=== PATIENT | female | born 1985 | race Caucasian/White ===

== ENCOUNTER 2016-06-04 20:47 | Emergency (ER) | payer OTHER ==
[~2016-06-04] VITALS: Ht 157.5 cm; Wt 90.8 kg
[2016-06-04 20:48] VITALS: TEMP 36.7; Ht 157.5 cm; Wt 90.8 kg
[2016-06-04] MEDS ORDERED: ACETAMINOPHEN 500 MG TAB PO STA (21:09)
[2016-06-04] MEDS ORDERED: ALUMINUM/MAGNESIUM SUSP 30 ML UDC PO STA (21:09)
[2016-06-04 21:12] VITALS: O2SAT 98
[2016-06-04 21:17] LABS: MEAN CELL VOLUME 93.7 fL (80-100); MEAN CORPUSCULAR HEMOGLOBIN 34.2 pg (25-34); MEAN CORPUSCULAR HGB CONC 36.5 g/dl (32-36); MEAN PLATELET VOLUME 8.6 fL (7.4-10.4); PLATELET COUNT 348 K/uL (130-400); RED BLOOD COUNT 3.63 M/uL (4.2-5.4); WHITE BLOOD COUNT 15.99 K/uL (4.8-10.8)
--- NOTE | 2016-06-04 21:17 | EMERGENCY ROOM VISIT NOTE ---
History Report prepared by [place]: Ji Palacios Under the Supervision of: Dr. Juan David Pozo D.O. First contact with patient: 21:00 Chief Complaint: CHEST PAIN Stated Complaint: CHEST PAIN Nursing Triage Summary: patient states one hour ago she had sudden onset left sided chest pain that radiated into left arm. patient states intial stabbing chest pain has subsided now she just feels " tight". denies any cardiac hx. History of Present Illness The patient is a 31 year old female who presents to the Emergency Room with complaints of an episode of chest pain beginning about 1 hour ago. She notes the pain is sharp and stabbing and she is also experiencing a tightness in her chest especially when she breaths. She has some upper back pain upon breathing. The patient notes the pain radiates to her left arm and fingers, and also has tingling in her fingers. She denies any shortness of breath, cough, abdominal pain, or swelling of her legs. The patient takes antidepressants and gabapentin daily, and was recently put on antibiotics for a build up of good bacteria. The patient notes she is 5.5 months and that this is her first . She did not call her OB-BONDERIZER tonight. She admits to smoking, and denies any history of clots or recent travel. She has had nose and tonsil surgery in the past. The patient took Tylenol 3 hours ago. Source of History: patient Onset: about 1 hour ago Position: chest Quality: sharp, stabbing Timing: other (episode) Modifying Factors (Worsening): breathing Associated Symptoms: + back pain, No SOB, No abdominal pain, No cough Note: The patient denies swelling of her legs. Review of Systems See HPI for pertinent positives & negatives. A total of 10 systems reviewed and were otherwise negative. Past Medical & Surgical Medical Problems: (1) History of asthma Family History No pertinent family history stated. Social History Smoking Status: Current Every Day Smoker Occupation Status: employed Current/Historical Medications Scheduled Escitalopram (Lexapro), 10 MG PO DAILY Gabapentin (Neurontin), 300 MG PO TID Multivit/Min/Iron/Fol Ac/Pren ( Vitamin), 1 TAB PO DAILY Scheduled PRN Albuterol Hfa (Ventolin Hfa), 2 PUFFS INH Q6H PRN for SOB/Wheezing Physical Exam Vital Signs Date Time Temp Pulse Resp B/P Pulse Ox O2 Delivery O2 Flow Rate FiO2 06/04/16 23:57 84 20 124/70 98 06/04/16 23:18 94 20 128/79 98 Room Air 06/04/16 22:24 95 20 125/72 97 Room Air 06/04/16 21:12 98 Room Air 06/04/16 21:12 98 Room Air 06/04/16 21:05 113 06/04/16 21:00 97 Room Air 06/04/16 20:48 36.7 104 20 171/91 99 Room Air Physical Exam GENERAL: Patient is awake alert in no acute distress patient is resting comfortably and showing no signs of anxiety EYES: The conjunctivae are clear. The pupils are round and reactive. EARS, NOSE, MOUTH AND THROAT: The nose is without any evidence of any deformity. Mucous membranes are moist tongue is midline NECK: The neck is nontender and supple. RESPIRATORY: Normal respiratory effort is noted there is no evidence of wheezing rhonchi or rales CARDIOVASCULAR: Tachycardic but regular. No definite murmurs noted. GASTROINTESTINAL: Abdomen is in appearance. No uterine tenderness. Abdomen is tender to palpation. No guarding or rigidity. MUSCULOSKELETAL/EXTREMITIES: There is no evidence of gross deformity full range of motion is noted in the hips and shoulders SKIN: There is no obvious evidence of any rash. There are no petechiae, pallor or cyanosis noted. NEUROLOGIC: Patient is awake alert and oriented x3. Medical Decision & Procedures ER Provider Diagnostic Interpretation: CT the chest was obtained in the emergency department. The report was reviewed. Preliminary Findings Only See Final Report For Complete Findings CTA CHEST: No PE. No aortic dissection. Lungs are clear. Radiologist: Param Eubanks M.D. Study ready at 23:16 and initial results transmitted at 23:44 SINGLE VIEW CHEST FINDINGS: An AP, portable, upright chest radiograph is obtained. No prior studies are available for comparison at the time of dictation. The examination is degraded by portable technique and patient rotation. The cardiomediastinal silhouette is unremarkable. The lungs and pleural spaces are clear. No pneumothorax is seen. The bony thorax is grossly intact. IMPRESSION: No active disease in the chest. Electronically signed by: Damon Alvarado M.D. 06/04/2016 10:12 PM Dictated Date/Time: 06/04/2016 10:12 PM Laboratory Results 06/04/16 21:05 Red Blood Count 3.63, Mean Corpuscular Volume 93.7, Mean Corpuscular Hemoglobin 34.2, Mean Corpuscular Hemoglobin Concent 36.5, Mean Platelet Volume 8.6 06/04/16 21:05 Test 06/04/16 21:05 06/04/16 21:14 06/04/16 21:55 White Blood Count 15.99 K/uL (4.8-10.8) Red Blood Count 3.63 M/uL (4.2-5.4) Hemoglobin 12.4 g/dL (12.0-16.0) Hematocrit 34.0 % (37-47) Mean Corpuscular Volume 93.7 fL (80-100) Mean Corpuscular Hemoglobin 34.2 pg (25-34) Mean Corpuscular Hemoglobin Concent 36.5 g/dl (32-36) Platelet Count 348 K/uL (130-400) Mean Platelet Volume 8.6 fL (7.4-10.4) RDW Standard Deviation 41.8 fL (36.4-46.3) RDW Coefficient of Variation 12.3 % (11.5-14.5) Neutrophils % (Manual) 72.2 % Lymphocytes % (Manual) 22.6 % Monocytes % (Manual) 2.6 % Eosinophils % (Manual) 1.7 % Myelocytes % 0.9 % Neutrophils # (Manual) 11.54 K/uL (1.4-6.5) Total Absolute Neutrophils 11.54 K/uL (1.4-6.5) Lymphocytes # (Manual) 3.61 K/uL (1.2-3.4) Total Absolute Lymphocytes 3.61 K/uL (1.2-3.4) Monocytes # (Manual) 0.42 K/uL (0.11-0.59) Eosinophils # (Manual) 0.27 K/uL (0-0.5) Myelocytes # 0.14 K/uL (0-0) Red Blood Cell Morphology Unremarkable Prothrombin Time 9.8 SECONDS (9.0-12.0) Prothromb Time International Ratio 0.9 (0.9-1.1) Activated Partial Thromboplast Time 25.0 SECONDS (21.0-31.0) Partial Thromboplastin Ratio 1.0 Anion Gap 11.0 mmol/L (3-11) Est Creatinine Clear Calc Drug Dose 118.7 ml/min Estimated GFR () 129.3 Estimated GFR (Non- 111.6 BUN/Creatinine Ratio 11.9 (10-20) Calcium Level 9.3 mg/dl (8.5-10.1) Total Bilirubin 0.2 mg/dl (0.2-1) Aspartate Amino Transf (AST/SGOT) 22 U/L (15-37) Alanine Aminotransferase (ALT/SGPT) 26 U/L (12-78) Alkaline Phosphatase 59 U/L (45-117) Troponin I < 0.015 ng/ml (0-0.045) Total Protein 6.9 gm/dl (6.4-8.2) Albumin 3.0 gm/dl (3.4-5.0) Globulin 3.9 gm/dl (2.5-4.0) Albumin/Globulin Ratio 0.8 (0.9-2) Bedside D-Dimer > 450 ng/mlFEU (0-450) Urine Color YELLOW Urine Appearance CLEAR (CLEAR) Urine pH 6.5 (4.5-7.5) Urine Specific [place] 1.012 (1.000-1.030) Urine Protein NEG (NEG) Urine Glucose (UA) NEG (NEG) Urine Ketones NEG (NEG) Urine Occult Blood NEG (NEG) Urine Nitrite NEG (NEG) Urine Bilirubin NEG (NEG) Urine Urobilinogen NEG (NEG) Urine Leukocyte Esterase TRACE (NEG) Urine WBC (Auto) 1-5 /hpf (0-5) Urine RBC (Auto) 0-4 /hpf (0-4) Urine Hyaline Casts (Auto) 1-5 /lpf (0-5) Urine Epithelial Cells (Auto) 20-30 /lpf (0-5) Urine Bacteria (Auto) NEG (NEG) Laboratory results per my review. Medications Administered Medications (Trade) Dose Ordered Sig/Linda Route Start Time Stop Time Status Last Admin Dose Admin Acetaminophen (Tylenol Tab) 1,000 mg NOW STAT PO 06/04/16 21:09 06/04/16 21:10 DC 06/04/16 21:21 1,000 MG Al Hydroxide/Mg Hydroxide 30 ml 30 ml NOW STAT PO 06/04/16 21:09 4/16/17 21:11 DC 06/04/16 21:21 30 ML Sodium Chloride (Nss 1000ml) 1,000 ml @ 999 mls/hr Q1H1M STAT IV 06/04/16 22:15 06/04/16 23:15 DC 06/04/16 22:15 999 MLS/HR ECG Indication: chest pain Rate (beats per minute): 99 Rhythm: normal sinus Findings: no ectopy, other (No acute ST segment abnormality) Comparison ECG Date: no prior available ED Course 2103: The patient was evaluated in room C9. A complete history and physical examination were performed. 2108: Ordered Maalox Susp 30 ml PO, and Acetaminophen 1,000 mg PO. 2214: Ordered NSS 1,000 ml @ 999 mls/hr IV. 2354: Upon reevaluation, the patient is doing well. I discussed the results and treatment plan with the patient. She verbalized agreement of the treatment plan. The patient was discharged home. Medical Decision Differential diagnosis: Etiologies such as cardiac ischemia, aortic dissection, pulmonary embolism, pneumonia, pneumothorax, musculoskeletal, infections, pericarditis, myocarditis , esophageal rupture, gastrointestinal, as well as others were entertained. Nursing notes reviewed. The patient is a 31-year-old female who presented to the emergency department for an evaluation of left-sided chest pain. The pain was not reproducible. Her EKG did not appear to be consistent with an acute ischemic cause for her pain. The patient's d-dimer is elevated but she is also . Because of the possibility venous from [place] disease CT the chest was obtained in the emergency department. The patient was treated with IV fluids and Tylenol emergency department. On subsequent reevaluation she was somewhat improved. I discussed the patient's laboratory and radiographic studies with her. She was encouraged to rest and avoid any strenuous activity. She was also encouraged to call her family doctor in the morning to schedule a follow-up appointment. She was also encouraged to return the emergency Department immediately if symptoms change worsen or the need arises. She did not appear to have any abdominal tenderness or signs of contractions while in the emergency department. Impression Primary Impression: Left sided chest pain Scribe Attestation The scribe's documentation has been prepared under my direction and personally reviewed by me in its entirety. I confirm that the note above accurately reflects all work, treatment, procedures, and medical decision making performed by me. Departure Information Dispostion Home / Self-Care Referrals Jose Nicole D.O. (PCP) Patient Instructions ED Chest Pain Atypical Unkn Cause, My [facility] Additional Instructions Call your family to schedule a follow-up appointment. Rest and avoid any strenuous activity. Drink plenty clear liquids. Consider starting an H2 toro such as Pepcid or Zantac. Try using Maalox or Mylanta as directed for symptomatically relief. Return to the emergency Department immediately if symptoms change worsen or the need arises.
[2016-06-04 21:27] LABS: INR 0.9 (0.9-1.1); PROTHROMBIN TIME (PATIENT) 9.8 SECONDS (9.0-12.0)
[2016-06-04 21:36] LABS: BLOOD UREA NITROGEN 9 mg/dl (7-18); BUN/CREATININE RATIO 11.9 (10-20); CARBON DIOXIDE 25 mmol/L (21-32); CHLORIDE 104 mmol/L (98-107); CREATININE 0.72 mg/dl (0.60-1.20); GLUCOSE 94 mg/dl (70-99); POTASSIUM 3.5 mmol/L (3.5-5.1); SODIUM 140 mmol/L (136-145)
[2016-06-04 21:39] LABS: COMPLETE YES; EOSINOPHIL % 1.7 %; LYMPH ABS # 3.61 K/uL (1.2-3.4); LYMPHOCYTE % 22.6 %; MYELOCYTE % 0.9 %; NEUTROPHILS % 72.2 %
[2016-06-04 21:41] LABS: ALB/GLOB RATIO 0.8 (0.9-2); ALKALINE PHOSPHATASE 59 U/L (45-117); ALT/SGPT 26 U/L (12-78); AST/SGOT 22 U/L (15-37)
[2016-06-04] MEDS ORDERED: GABA-113 PO (21:42)
[2016-06-04] MEDS ORDERED: ESCI10TA17 PO (21:42)
[2016-06-04] MEDS ORDERED: VNTHFA/IN INH (21:42)
[2016-06-04] MEDS ORDERED: PRENTAB26 PO (21:42)
[2016-06-04 21:50] LABS: CALCIUM 9.3 mg/dl (8.5-10.1)
[2016-06-04 22:11] LABS: URINE APPEARANCE CLEAR (CLEAR); URINE BILIRUBIN NEG (NEG); URINE COLOR YELLOW; URINE EPITHELIAL CELL AUTO 20-30 /lpf (0-5); URINE NITRITE NEG (NEG); URINE PH 6.5 (4.5-7.5); URINE SPECIFIC GRAVITY 1.012 (1.000-1.030); UROBILINOGEN NEG (NEG)
[2016-06-04 22:13] LABS: MANUAL MICROSCOPIC REQUIRED? NO; REVIEW REQ? NO
--- NOTE | 2016-06-04 22:14 | DIAGNOSTIC IMAGING REPORT ---
SINGLE VIEW CHEST CLINICAL HISTORY: Dyspnea. . FINDINGS: An AP, portable, upright chest radiograph is obtained. No prior studies are available for comparison at the time of dictation. The examination is degraded by portable technique and patient rotation. The cardiomediastinal silhouette is unremarkable. The lungs and pleural spaces are clear. No pneumothorax is seen. The bony thorax is grossly intact. IMPRESSION: No active disease in the chest. Electronically signed by: Damon Alvarado M.D. 06/04/2016 10:12 PM Dictated Date/Time: 06/04/2016 10:12 PM
[2016-06-04] MEDS ORDERED: SODIUM CHLORIDE 0.9% 1000ML 1,000 ML IV STA (22:15)
[2016-06-04] MEDS ORDERED: OPTIRAY 320 IV PRN (23:15)
[2016-06-04 23:57] VITALS: BP 124/70; PULSE 84; O2SAT 98
--- NOTE | 2016-06-05 07:28 | DIAGNOSTIC IMAGING REPORT ---
CHEST CTA for PULMONARY ARTERIES CT DOSE: 414.27 mGy.cm HISTORY: Left-sided chest pain. . TECHNIQUE: Multiaxial CT images of the chest were performed following the intravenous administration of contrast to evaluate the pulmonary arteries. Maximal intensity projection images were also obtained. COMPARISON STUDY: None. FINDINGS: There is a normal caliber thoracic aorta with no evidence for dissection. There is no evidence for pulmonary embolus. No pleural effusions. No pneumothorax. The liver and spleen are unremarkable. No mediastinal or hilar lymphadenopathy. The central airways are patent. No focal lung consolidations. A few tiny subpleural nodular densities within the left lung are of doubtful clinical significance. IMPRESSION: No evidence for pulmonary embolus. Electronically signed by: Nura Edgar M.D. 06/05/2016 7:26 AM Dictated Date/Time: 06/05/2016 7:22 AM
[2016-07-14] MEDS ORDERED: KFL250 PO (23:23)
[2016-09-29] MEDS ORDERED: OXYC-57 PO (13:03)
== END 2016-06-04 23:58 | disposition home or self-care (01) ==
LOC: C.EDB 20:47 → C.EDC 23:58
DX: R07.9 Chest pain, unspecified (principal); M54.6 Pain in thoracic spine; R20.2 Paresthesia of skin; O99.330 Smoking (tobacco) complicating pregnancy, unspecified trimester; Z3A.00 Weeks of gestation of pregnancy not specified; Z79.899 Other long term (current) drug therapy; J45.909 Unspecified asthma, uncomplicated; F17.200 Nicotine dependence, unspecified, uncomplicated

== ENCOUNTER 2016-07-12 08:26 | Emergency (ER) | payer OTHER ==
[~2016-07-12] VITALS: Ht 158.8 cm; Wt 97.3 kg
[~2016-07-12 08:26] MED LIST: ESCI10TA17 PO; GABA-113 PO; PRENTAB26 PO; VNTHFA/IN INH
[2016-07-12 08:28] VITALS: PULSE 121; TEMP 36.5; O2SAT 99; Ht 158.8 cm; Wt 97.3 kg
[2016-07-12] MEDS ORDERED: CLR10 PO (09:07)
[2016-07-12 09:54] LABS: URINE APPEARANCE CLEAR (CLEAR); URINE BILIRUBIN NEG (NEG); URINE COLOR YELLOW; URINE EPITHELIAL CELL AUTO >30 /lpf (0-5); URINE NITRITE NEG (NEG); URINE PH 8.5 (4.5-7.5); URINE SPECIFIC GRAVITY 1.013 (1.000-1.030); UROBILINOGEN NEG (NEG); ZZUR CULT IF INDIC CLEAN CATCH YES
[2016-07-12 09:55] LABS: MANUAL MICROSCOPIC REQUIRED? NO; REVIEW REQ? NO
--- NOTE | 2016-07-12 11:05 | EMERGENCY ROOM VISIT NOTE ---
History First contact with patient: 09:10 Chief Complaint: HEMATURIA Stated Complaint: BLOOD IN URINE-7 MONTHS -THROUGH ER 1ST Nursing Triage Summary: noticed hematuria, 7 months History of Present Illness The patient is a 31 year old female who presents to the Emergency Room with complaints of blood in her urine this morning. The patient is currently 7 months . She sees [facility] ADMINISTRATIVE SUPPORT ASSOCIATE. The patient states that she woke up and noticed that her urine was darker than normal this morning. She states that the bleeding has seemed to decrease since then and she did not notice any blood when she keep the urine sample here. She describes a dull aching pain in her lower abdomen. She reports the baby is moving normally and she denies any contractions. The patient denies any complications of this . She denies any vaginal bleeding. She is currently seeing ADMINISTRATIVE SUPPORT ASSOCIATE regarding elevated glucose and an elevated blood pressure in the office. She denies any back pain. She denies any other urinary symptoms. Review of Systems A complete 10 point review of systems was reviewed with the patient with pertinent positives and negatives as per history of present illness. All else were negative. Past Medical/Surgical History Medical Problems: (1) History of asthma Social History Smoking Status: Never Smoker Occupation Status: employed Current/Historical Medications Scheduled Escitalopram (Lexapro), 10 MG PO DAILY Gabapentin (Neurontin), 300 MG PO TID Multivit/Min/Iron/Fol Ac/Pren ( Vitamin), 1 TAB PO DAILY Scheduled PRN Albuterol Hfa (Ventolin Hfa), 2 PUFFS INH Q6H PRN for SOB/Wheezing Loratadine (Claritin), 10 MG PO DAILY PRN for Seasonal Allergies Allergies Coded Allergies: No Known Allergies (Unverified , 07/12/16) Physical Exam Vital Signs Date Time Temp Pulse Resp B/P Pulse Ox O2 Delivery O2 Flow Rate FiO2 07/12/16 11:23 137/93 07/12/16 09:51 134/89 07/12/16 08:28 36.5 121 20 154/100 99 Room Air Physical Exam VITALS: Vitals are noted on the nurse's note and reviewed by myself. Vital signs stable. GENERAL: This is a 31-year-old female, in no acute distress, nondiaphoretic, well-developed well-nourished. HEART: Regular rate and rhythm without murmurs gallops or rubs. LUNGS: Clear to auscultation bilaterally without wheezes, rales or rhonchi. ABDOMEN: Normal fundal height for reported gestational age. No tenderness to palpation. NEURO: Patient was alert and oriented to person place and time. Medical Decision & Procedures Laboratory Results Test 07/12/16 08:30 07/12/16 08:52 Urine Color YELLOW Urine Appearance CLEAR (CLEAR) Urine pH 8.5 (4.5-7.5) Urine Specific [place] 1.013 (1.000-1.030) Urine Protein NEG (NEG) Urine Glucose (UA) NEG (NEG) Urine Ketones NEG (NEG) Urine Occult Blood 3+ (NEG) Urine Nitrite NEG (NEG) Urine Bilirubin NEG (NEG) Urine Urobilinogen NEG (NEG) Urine Leukocyte Esterase LARGE (NEG) Urine WBC (Auto) 1-5 /hpf (0-5) Urine RBC (Auto) 10-30 /hpf (0-4) Urine Hyaline Casts (Auto) 1-5 /lpf (0-5) Urine Epithelial Cells (Auto) >30 /lpf (0-5) Urine Bacteria (Auto) 1+ (NEG) Bedside Glucose 98 mg/dl (70-90) Medical Decision Differential diagnosis includes urinary tract infection, kidney stone, vaginal bleeding, among others. The patient was evaluated as above. Urinalysis was performed and did show blood , leukocyte esterase and 1+ bacteria as well as greater than 30 epithelial cells. I feel this likely represents contamination versus infection. heart tones were measured by nursing staff at 140 bpm. Patient was initially hypertensive but recheck showed significant improvement. This case was discussed with Dr. Shy Echeverria ADMINISTRATIVE SUPPORT ASSOCIATE. She did not feel that further workup was needed but did recommend that the patient have close follow-up in the office and a urine culture. Culture was sent. Patient was instructed to return here for worsening symptoms. She verbalized understanding of my assessment and treatment plan and was discharged home in good condition. Impression Primary Impression: Hematuria Departure Information Dispostion Home / Self-Care Condition GOOD Referrals Jose Nicole D.O. (PCP) Canan. Medina MD Patient Instructions My [facility] Additional Instructions Follow-up with ADMINISTRATIVE SUPPORT ASSOCIATE within 48 hours. Return with abdominal pain, vomiting, contractions, vaginal bleeding or any other new/concerning symptoms.
[2016-07-12 11:23] VITALS: BP 137/93
[2016-07-14] MEDS ORDERED: KFL250 PO (23:23)
[2016-09-29] MEDS ORDERED: OXYC-57 PO (13:03)
== END 2016-07-12 11:26 | disposition home or self-care (01) ==
LOC: C.EDB 08:28 → C.EDA 11:26
DX: R31.9 Hematuria, unspecified (principal); O26.892 Other specified pregnancy related conditions, second trimester; R10.9 Unspecified abdominal pain; Z3A.00 Weeks of gestation of pregnancy not specified; Z79.899 Other long term (current) drug therapy; Z87.09 Personal history of other diseases of the respiratory system

== ENCOUNTER 2016-07-14 22:04 | Outpatient (CLI) | payer OTHER ==
[~2016-07-14] VITALS: Ht 158.8 cm; Wt 99.0 kg
[~2016-07-14 22:04] MED LIST changes: +CLR10 PO
[2016-07-14] MEDS ORDERED: ACETAMINOPHEN 325 MG TAB PO PRN (22:30)
[2016-07-14 22:38] LABS: URINE APPEARANCE CLOUDY (CLEAR); URINE BILIRUBIN NEG (NEG); URINE COLOR YELLOW; URINE EPITHELIAL CELL AUTO >30 /lpf (0-5); URINE NITRITE NEG (NEG); URINE SPECIFIC GRAVITY 1.012 (1.000-1.030); UROBILINOGEN NEG (NEG); ZZUR CULT IF INDIC CLEAN CATCH YES
[2016-07-14 22:47] LABS: MANUAL MICROSCOPIC REQUIRED? NO; REVIEW REQ? YES
[2016-07-14] MEDS ORDERED: CEPHALEXIN MONOHYDRATE 250 MG CAP PO ONE (23:00)
[2016-07-14] MEDS ORDERED: KFL250 PO (23:23)
[2016-07-14 23:33] VITALS: Ht 158.8 cm; Wt 99.0 kg
--- NOTE | 2016-07-14 23:38 | Discharge Instructions ---
Discharge Instructions Date of Service July 14, 2016. Admission Reason for Admission: Bladder Pain Discharge Discharge Diagnosis / Problem: bladder pain Discharge Goals Goal(s): Continuing OB care Activity Recommendations Activity Limitations: as noted below Lifting Limitations: no more than 10 pounds, gradually increase as tolerated Exercise/Sports Limitations: until after follow-up appointment May Resume Sexual Activity: after follow-up appointment Shower/Bathe: no limitations Driving or Machine Use: no limitations ACTIVITY RECOMMENDATIONS: See Labor Sheet. SPECIAL CARE INSTRUCTIONS: Call Doctor if: * Regular contractions every 5 minutes or greater than 5 contractions in one hour. * Bleeding * Water breaks or is leaking * Decreased movement * Fever >100.4 degrees F * Pain not relieved by routine measures or pain medication ordered. FOLLOW UP VISIT: Return to Labor and Delivery on for /call for appointment time . Follow-up Visit with: When: . Current Hospital Diet Patient's current hospital diet: Discharge Diet Recommended Diet: Regular Diet Pending Studies Studies pending at discharge: yes List of pending studies: urine culture Medical Emergencies . Who to Call and When: Medical Emergencies: If at any time you feel your situation is an emergency, please call 911 immediately. . Non-Emergent Contact Non-Emergency issues call your: Car Hostler, Surgeon . . "Provider Documentation" section prepared by Chandu Medina. . VTE Core Measure Inpt VTE Proph given/why not?: Treatment not indicated
== END 2016-07-15 00:20 | disposition home or self-care (01) ==
LOC: C.OPB 22:04 → C.LD 22:04 → C.OPB 07-15 00:20
PROVIDERS: ATTEND Obstetrics & Gynecology
DX: O26.893 Other specified pregnancy related conditions, third trimester (principal); R39.89 Other symptoms and signs involving the genitourinary system; Z3A.28 28 weeks gestation of pregnancy; O99.333 Smoking (tobacco) complicating pregnancy, third trimester; F17.200 Nicotine dependence, unspecified, uncomplicated; M51.86 Other intervertebral disc disorders, lumbar region; O24.419 Gestational diabetes mellitus in pregnancy, unspecified control; R03.0 Elevated blood-pressure reading, without diagnosis of hypertension; O62.9 Abnormality of forces of labor, unspecified

== ENCOUNTER 2016-09-19 13:25 | Emergency (ER) | payer OTHER ==
[~2016-09-19] VITALS: Ht 157.5 cm; Wt 105.9 kg
[~2016-09-19 13:25] MED LIST changes: +KFL250 PO
[2016-09-19 13:29] VITALS: TEMP 36.7; Ht 157.5 cm; Wt 105.9 kg
[2016-09-19] MEDS ORDERED: ALBUT/IPRATROP 3MG/0.5MG NEB 3 ML VIAL INH STA ×2 (13:57→17:08)
--- NOTE | 2016-09-19 14:02 | EMERGENCY ROOM VISIT NOTE ---
History First contact with patient: 13:46 Chief Complaint: RESPIRATORY PROBLEMS Stated Complaint: BREATHING ISSUES - ASTHMA - 38 WK Nursing Triage Summary: triage no te: pt reports she is 38 weeks preg. pt reports "my asthma is getting worse and my inhaler is not working at all." History of Present Illness The patient is a 31 year old female who presents to the Emergency Room with complaints of trouble breathing. The patient is a female who is 38 weeks . She has history of asthma and allergies. She is also a daily smoker. The patient states she has been using her albuterol inhaler without significant improvement. The patient sees [facility] TURNER. She was recently started on labetalol for her blood pressure. She denies any recent illness, earache, sore throat, cough. She denies any pain in her chest. She denies any abdominal pain or cramping. She denies any pain at all. She denies any vaginal bleeding or discharge. She states that she frequently has exacerbations of asthma. Review of Systems A 10 system review of systems was completed with positives and pertinent negatives listed in the HPI. Past Medical/Surgical History Medical Problems: (1) Dysuria (2) History of asthma (3) Pelvic pain affecting in third trimester, antepartum Social History Smoking Status: Current Every Day Smoker Occupation Status: employed Current/Historical Medications Scheduled Escitalopram (Lexapro), 10 MG PO DAILY Gabapentin (Neurontin), 300 MG PO TID Ipratropium [place] (Atrovent Hfa), 2 PUFFS INH QID Multivit/Min/Iron/Fol Ac/Pren ( Vitamin), 1 TAB PO DAILY Scheduled PRN Albuterol Hfa (Ventolin Hfa), 2 PUFFS INH Q6H PRN for SOB/Wheezing Loratadine (Claritin), 10 MG PO DAILY PRN for Seasonal Allergies Ranitidine Hcl (Zantac), 1 TAB PO BID PRN for prn Miscellaneous Medications Labetalol (Normodyne), 100 MG PO Physical Exam Vital Signs Date Time Temp Pulse Resp B/P (MAP) Pulse Ox O2 Delivery O2 Flow Rate FiO2 09/19/16 17:52 87 18 144/86 97 Room Air 09/19/16 16:10 95 20 146/96 98 Room Air 09/19/16 14:15 103 09/19/16 14:12 97 Room Air 09/19/16 14:12 104 22 143/74 97 Room Air 09/19/16 13:29 97 Room Air 09/19/16 13:29 36.7 109 22 131/86 97 Physical Exam VITALS: Vitals are noted on the nurse's note and reviewed by myself. Vital signs stable. The patient is afebrile. She is not hypotensive. Her heart rate is 109 bpm. She is not hypoxic. GENERAL: This is a 31-year-old female, in no acute distress, nondiaphoretic, well-developed well-nourished. SKIN: The skin was without rashes, erythema, edema, or bruising. There is no tenting of the skin. Capillary reflex less than 2 seconds. HEAD: Normocephalic atraumatic. EARS: External auditory canals clear, tympanic membranes pearly falcon without erythema or effusion bilaterally. EYES: Pupils equal round and reactive to light and accommodation. Conjunctivae without injection, sclerae without icterus. Extraocular movements intact. NOSE: Patent, turbinates without inflammation or discharge. MOUTH: Mucous membranes moist. Tongue does not deviate. NECK: Supple without nuchal rigidity. No lymphadenopathy. No thyromegaly. Cervical spine is nontender. No JVD. HEART: Regular rate and rhythm without murmurs gallops or rubs. LUNGS: Moderate diffuse expiratory wheezes. No dullness to percussion. No retractions or accessory muscle use. ABDOMEN: Positive bowel sounds x 4. Soft, appearance, nontender, without masses or organomegaly. MUSCULOSKELETAL: No muscle atrophy, erythema, or edema noted. Full range of motion in all extremities. Strength 5/5 throughout. NEURO: Patient was alert and oriented to person place and time. No focal neurological deficits. Medical Decision & Procedures Laboratory Results 09/19/16 14:05 Red Blood Count 3.96, Mean Corpuscular Volume 96.7, Mean Corpuscular Hemoglobin 31.6, Mean Corpuscular Hemoglobin Concent 32.6, Mean Platelet Volume 9.4, Neutrophils (%) (Auto) 71.7, Lymphocytes (%) (Auto) 17.8, Monocytes (%) (Auto) 8.1, Eosinophils (%) (Auto) 1.0, Basophils (%) (Auto) 0.2, Neutrophils # (Auto) 9.83, Lymphocytes # (Auto) 2.44, Monocytes # (Auto) 1.11, Eosinophils # (Auto) 0.14, Basophils # (Auto) 0.03 09/19/16 14:05 Test 09/19/16 14:05 White Blood Count 13.71 K/uL (4.8-10.8) Red Blood Count 3.96 M/uL (4.2-5.4) Hemoglobin 12.5 g/dL (12.0-16.0) Hematocrit 38.3 % (37-47) Mean Corpuscular Volume 96.7 fL (80-100) Mean Corpuscular Hemoglobin 31.6 pg (25-34) Mean Corpuscular Hemoglobin Concent 32.6 g/dl (32-36) Platelet Count 289 K/uL (130-400) Mean Platelet Volume 9.4 fL (7.4-10.4) Neutrophils (%) (Auto) 71.7 % Lymphocytes (%) (Auto) 17.8 % Monocytes (%) (Auto) 8.1 % Eosinophils (%) (Auto) 1.0 % Basophils (%) (Auto) 0.2 % Neutrophils # (Auto) 9.83 K/uL (1.4-6.5) Lymphocytes # (Auto) 2.44 K/uL (1.2-3.4) Monocytes # (Auto) 1.11 K/uL (0.11-0.59) Eosinophils # (Auto) 0.14 K/uL (0-0.5) Basophils # (Auto) 0.03 K/uL (0-0.2) RDW Standard Deviation 45.3 fL (36.4-46.3) RDW Coefficient of Variation 13.0 % (11.5-14.5) Immature Granulocyte % (Auto) 1.2 % Immature Granulocyte # (Auto) 0.16 K/uL (0.00-0.02) Anion Gap 7.0 mmol/L (3-11) Est Creatinine Clear Calc Drug Dose 155.3 ml/min Estimated GFR () 140.8 Estimated GFR (Non- 121.5 BUN/Creatinine Ratio 20.5 (10-20) Calcium Level 9.1 mg/dl (8.5-10.1) Total Bilirubin < 0.1 mg/dl (0.2-1) Aspartate Amino Transf (AST/SGOT) 21 U/L (15-37) Alanine Aminotransferase (ALT/SGPT) 23 U/L (12-78) Alkaline Phosphatase 99 U/L (45-117) Total Protein 6.5 gm/dl (6.4-8.2) Albumin 2.4 gm/dl (3.4-5.0) Globulin 4.1 gm/dl (2.5-4.0) Albumin/Globulin Ratio 0.6 (0.9-2) Medications Administered Medications (Trade) Dose Ordered Sig/Linda Route Start Time Stop Time Status Last Admin Dose Admin Albuterol/ Ipratropium (Duoneb) 3 ml NOW STAT INH 09/19/16 13:57 09/19/16 13:58 DC 09/19/16 14:12 3 ML Albuterol/ Ipratropium (Duoneb) 3 ml NOW STAT INH 09/19/16 17:08 09/19/16 17:10 DC 09/19/16 17:30 3 ML Procedure The patient was monitored on a monitoring manager. They maintained a normal sinus rhythm without ectopy. ECG Indication: SOB/dyspnea Rate (beats per minute): 98 Rhythm: normal sinus Findings: no acute ischemic change Change: no significant change ED Course The patient was seen and examined. Previous visits were reviewed. She does not have a fever. She does have a leukocytosis of 13.71 which is likely related to her . She is not anemic. She does not have any significant electrolyte abnormalities. The patient has a history of asthma and seasonal allergies. She is also a smoker. She is 38 weeks . She is not hypoxic. The patient has audible wheezing. The patient was given a DuoNeb and the wheezing improved and her symptoms markedly improved. There was some delay in getting her laboratory studies resulted due to the custom stock maker in the lab not working properly. She was here for nearly 4 hours and needed another breathing treatment before discharge. The patient was feeling markedly better. She was not wheezing and did not have any symptoms of dyspnea. She does not have any pain or swelling in her calves. She was not hypoxic. She does not have any personal history of DVT. Her mother has a history of DVT which is related to lupus. The patient has been tested for lupus and was negative. I suspect this is an asthma exacerbation. Additionally, the patient had no relief with her albuterol inhaler. The patient was recently started on labetalol, a beta toro. This is likely the reason for the beta agonist, albuterol, not being effective. Ipratropium seemed to help her more significantly. Therefore, she was given a prescription for an Atrovent inhaler. She was instructed to use it only if needed. The patient should continue to follow closely with her HAND TURNER. She was encouraged to stop smoking and was counseled on the importance of smoking cessation given and asthma history. She should return with any worsening symptoms. The case was discussed with Dr. Gonzalez who agrees with the assessment and treatment plan. Medical Decision DIFFERENTIAL DIAGNOSIS: Aortic dissection, myocarditis, pericarditis, cervical disc disease, costochondritis, herpes zoster, rib fracture, pleuritis, pneumonia , pulmonary embolus, tension pneumothorax, anxiety disorder, somatoform disorder , choledocholithiasis, status, esophagitis, esophageal spasm, esophageal reflux , esophageal rupture, pancreatitis, peptic ulcer disease, cardiac ischemia, ST elevation MO, acute coronary syndrome, arrhythmia, coronary artery vasospasm. vavular heart disease, coronary artery disease, among others. Medication Reconcilliation Current Medication List: was personally reviewed by me Blood Pressure Screening Patient's blood pressure: Elevated blood pressure Blood pressure disposition: Referred to PCP Impression Primary Impression: Asthma exacerbation Departure Information Dispostion Home / Self-Care Condition GOOD Prescriptions Ipratropium [place] (Atrovent Hfa) 200 Puffs/3400 Mcg Aers 2 PUFFS INH QID, #12.9 GM Prov: Lissette Gotti PA-C 09/19/16 Referrals Jose Nicole D.O. (PCP) Patient Instructions Asthma - [facility], [facility] Additional Instructions Use the inhaler 1-2 puffs every 4-6 hours as needed Contact your doctor for a follow up appointment Return with worsening trouble breathing, chest pain, leg swelling Continue to monitor your blood pressure and follow closely with HAND TURNER
[2016-09-19 14:12] VITALS: O2SAT 97
[2016-09-19] MEDS ORDERED: RANI150T3 PO (14:43)
[2016-09-19] MEDS ORDERED: LABE1TAB28 PO (14:43)
[2016-09-19 15:18] LABS: BASO % 0.2 %; BASO ABS # 0.03 K/uL (0-0.2); COMPLETE YES; HEMATOCRIT 38.3 % (37-47); IG% 1.2 %; LYMPH % 17.8 %; LYMPH ABS # 2.44 K/uL (1.2-3.4); MEAN CELL VOLUME 96.7 fL (80-100); MEAN CORPUSCULAR HEMOGLOBIN 31.6 pg (25-34); MEAN CORPUSCULAR HGB CONC 32.6 g/dl (32-36); MEAN PLATELET VOLUME 9.4 fL (7.4-10.4); MONO % 8.1 %; NEUT % 71.7 %; PLATELET COUNT 289 K/uL (130-400); RED BLOOD COUNT 3.96 M/uL (4.2-5.4); WHITE BLOOD COUNT 13.71 K/uL (4.8-10.8)
[2016-09-19 15:26] LABS: ALT/SGPT 23 U/L (12-78); BLOOD UREA NITROGEN 12 mg/dl (7-18); BUN/CREATININE RATIO 20.5 (10-20); CALCIUM 9.1 mg/dl (8.5-10.1); CARBON DIOXIDE 23 mmol/L (21-32); CHLORIDE 108 mmol/L (98-107); GLUCOSE 88 mg/dl (70-99); POTASSIUM 4.1 mmol/L (3.5-5.1); SODIUM 138 mmol/L (136-145)
[2016-09-19 15:29] LABS: ALB/GLOB RATIO 0.6 (0.9-2); ALKALINE PHOSPHATASE 99 U/L (45-117); AST/SGOT 21 U/L (15-37)
[2016-09-19] MEDS ORDERED: ATRIN INH (16:08)
[2016-09-19 17:52] VITALS: BP 144/86; PULSE 87; O2SAT 97
[2016-09-29] MEDS ORDERED: OXYC-57 PO (13:03)
== END 2016-09-19 18:00 | disposition home or self-care (01) ==
LOC: C.EDB 13:26
DX: O99.513 Diseases of the respiratory system complicating pregnancy, third trimester (principal); O99.333 Smoking (tobacco) complicating pregnancy, third trimester; J45.901 Unspecified asthma with (acute) exacerbation; Z3A.38 38 weeks gestation of pregnancy; F17.210 Nicotine dependence, cigarettes, uncomplicated; Z79.899 Other long term (current) drug therapy

== ENCOUNTER 2016-09-23 19:38 | Outpatient (CLI) | payer OTHER ==
[~2016-09-23] VITALS: Ht 157.5 cm; Wt 107.4 kg
[~2016-09-23 19:38] MED LIST changes: +ATRIN INH; -KFL250 PO; +LABE1TAB28 PO; +RANI150T3 PO
[2016-09-23 21:18] VITALS: Ht 157.5 cm; Wt 107.4 kg
[2016-09-29] MEDS ORDERED: OXYC-57 PO (13:03)
== END 2016-09-23 21:10 | disposition home or self-care (01) ==
LOC: C.LD 19:38 → C.OPB 19:38
PROVIDERS: ATTEND Obstetrics & Gynecology
DX: O62.9 Abnormality of forces of labor, unspecified (principal); O16.3 Unspecified maternal hypertension, third trimester; O99.213 Obesity complicating pregnancy, third trimester; E66.9 Obesity, unspecified; Z3A.38 38 weeks gestation of pregnancy

== ENCOUNTER 2016-09-25 11:13 | Inpatient (IN) | payer OTHER ==
[~2016-09-25] VITALS: Ht 160 cm; Wt 106.4 kg
[2016-09-25] MEDS ORDERED: LACTATED RINGER'S 1000ML 1,000 ML IV PRN (12:00)
[2016-09-25 12:12] VITALS: BMI 42.2
[2016-09-25] MEDS ORDERED: ALBUTEROL 0.083% NEBU SOLN 3 ML VIAL INH PRN (12:30)
[2016-09-25 12:31] LABS: HEMATOCRIT 36.9 % (37-47); MEAN CELL VOLUME 97.4 fL (80-100); MEAN CORPUSCULAR HEMOGLOBIN 33.5 pg (25-34); MEAN CORPUSCULAR HGB CONC 34.4 g/dl (32-36); MEAN PLATELET VOLUME 9.7 fL (7.4-10.4); PLATELET COUNT 296 K/uL (130-400); RED BLOOD COUNT 3.79 M/uL (4.2-5.4); WHITE BLOOD COUNT 16.08 K/uL (4.8-10.8)
[2016-09-25] MEDS ORDERED: BUPIVACAINE 0.25% 30 ML VIAL ONE (12:46)
[2016-09-25] MEDS ORDERED: FENTANYL CITRATE INJ 50 MCG/1 ML 2 ML VIAL ONE ×2 (12:47→19:20)
[2016-09-25] MEDS ORDERED: FENTANYL 2MCG/ML ROPIV 1.25MG/ML 100ML BAG EPI ONE (12:47)
[2016-09-25] MEDS ORDERED: EpHEDrine SULFATE INJ 50 MG/ML AMP ONE (12:47)
--- NOTE | 2016-09-25 12:56 | HISTORY & PHYSICAL EXAMINATION ---
DATE OF ADMISSION: 09/25/2016 LABOR AND DELIVERY ADMISSION NOTE CHIEF COMPLAINT: Contractions. HISTORY OF PRESENT ILLNESS: The patient is a 31-year-old G1, P0 at 39 weeks and 1 day of gestation who woke up this morning at 3:00 a.m. with contractions. They have been getting closer and more painful. She denies leakage of fluid or vaginal bleeding. She reports good movements. She denies headaches, change in her vision, nausea, vomiting, epigastric or right upper quadrant pain. She denies chest pain, shortness of breath, fever, chills or leg pain. Her has been complicated by 1) Chronic hypertension confirmed by high BP before 20 weeks and was started on labetalol 100 mg b.i.d., a month ago. Her pressures have been stable. Blood work normal. No symptoms of severe features. 2) Obesity 3) Asthma: on inhalers, h/o of admission as a child. 4) Smoker: cut down from 1 and 1/2 pack/ day to 5-6 cog / day now 5) h/o chronic back pain, on Gabapentin 6) h/o OCD: on Lexapro PAST MEDICAL HISTORY: As above and history of anxiety, history of asthma, lumbar degenerative disk disorder, and history of OCD. PAST SURGICAL HISTORY: Nasal septum and tonsillectomy. MEDICATIONS: vitamins once a day, albuterol inhaler as needed, Neurontin 300 mg 4 times a day, Claritin 10 mg once a day, and Proventil inhaler as needed. Lexapro 20 mg daily ALLERGIES: No known drug allergies. SOCIAL HISTORY: The patient denies alcohol or drug use. GYNECOLOGIC HISTORY: The patient denies any history of STDs including Chlamydia, gonorrhea, herpes. PHYSICAL EXAMINATION: GENERAL: The patient is alert, oriented x3, not in acute distress. She is having moderate distress with contractions. VITAL SIGNS: Her initial blood pressure was 170/110, taken during contraction and when she was in pain, repeat one is 146/86; temperature 98.1 Fahrenheit, pulse 101, respirations 24. CARDIOVASCULAR SYSTEM: S1, S2, RRR. LUNGS: Clear to auscultation bilaterally. ABDOMEN: Soft, gravid. EXTREMITIES: Nontender, 2+ nonpitting edema. Reflexes 1+ bilaterally and no clonus noted. PELVIC: Her cervix is 4 cm dilated, 90% effaced and minus 2 vertex with tight-bulging membranes. LABS: Blood type A negative, antibody screen negative, GC chlamydia cultures were negative. HIV and RPR were nonreactive. Hepatitis B surface antigen negative, rubella titer positive. One hour Glucola was 158 mg/dL and a repeat one was 94 mg/dL, 3-hour OGGT was within normal limits with 1 elevated number. Blood work including liver function and creatinine were within normal limits. A 24-hour urine collection showed 170 mg urine in 24 hours. Platelet count has been normal. Her GBS culture was negative on September 08. ASSESSMENT AND PLAN: The patient is a 31-year-old G1, P0 at 39 weeks and 1 day of gestation with history of chronic hypertension on labetalol. She is presenting in labor. Afebrile. heart rate is reassuring. Plan is admit her, start IV fluids, closely monitor blood pressures and obtain blood work for liver/ kidney functions and start antihypertensive and magnesium therapy if needed. She has no signs or symptoms superimposed preeclampsia Epidural for pain per patient's request. Anticipate All questions were answered. MTDD
[2016-09-25 13:02] LABS: BUN/CREATININE RATIO 26.7 (10-20); CALCIUM 9.5 mg/dl (8.5-10.1); CREATININE 0.55 mg/dl (0.60-1.20); POTASSIUM 3.9 mmol/L (3.5-5.1)
[2016-09-25 13:05] LABS: ALB/GLOB RATIO 0.6 (0.9-2)
[2016-09-25 13:14] LABS: INR 0.9 (0.9-1.1); PROTHROMBIN TIME (PATIENT) 9.4 SECONDS (9.0-12.0)
[2016-09-25] MEDS: LACTATED RINGER'S 1000ML 1,000 ML IV SCH ×2 (13:28→22:52)
[2016-09-25] MEDS ORDERED: LACTATED RINGER'S 1000ML 500 ML IV PRN ×2 (14:00→17:29)
[2016-09-25] MEDS ORDERED: DiphenhydrAMINE HCL 50 MG/ML VIAL IV PRN (14:00)
[2016-09-25] MEDS ORDERED: NALBUPHINE HCL INJ 10 MG/ML AMP IV PRN (14:00)
[2016-09-25] MEDS ORDERED: EpHEDrine SULFATE INJ 50 MG/ML AMP IV PRN (14:00)
[2016-09-25] MEDS ORDERED: NALOXONE HCL INJ 0.4 MG/1 ML VIAL/CARP IV PRN (14:00)
[2016-09-25] MEDS ORDERED: NALOXONE HCL INJ 1 MG in SODIUM CHLORIDE 0.9% 1000ML 1,000 ML IV PRN (14:00)
[2016-09-25 14:38] VITALS: Ht 160 cm; Wt 106.4 kg
[2016-09-25] MEDS: FENTANYL 2MCG/ML ROPIV 1.25MG/ML 100ML BAG EPI PRN ×3 (15:17→19:50)
[2016-09-25] MEDS ORDERED: OXYTOCIN 30 UNITS/500ML NSS IV PRN (17:30)
[2016-09-25] MEDS ORDERED: ACETAMINOPHEN 325 MG TAB PO PRN (18:15)
[2016-09-25] MEDS: LABETALOL HCL 100 MG TAB PO SCH (20:02)
[2016-09-25] MEDS: IPRATROPIUM BROMIDE HFA INHALER INH SCH (21:11)
[2016-09-25] MEDS ORDERED: LACTATED RINGER'S 1000ML 1,000 ML IV SCH (23:59)
[2016-09-26] VITALS (14 sets, daily range): BP systolic 94–143; BP diastolic 52–84; PULSE 84–114; TEMP 36.5–36.7; O2SAT 93–97
[2016-09-26] MEDS ORDERED: ALBUTEROL HFA 8 GM INHALER INH SCH
[2016-09-26] MEDS ORDERED: CITRIC ACID/SODIUM CITRATE 15 ML UDC PO STA (00:01)
[2016-09-26] MEDS ORDERED: CEFAZOLIN IV 3,000 MG in DEXTROSE 5% 50ML 50 ML IV STA (00:02)
[2016-09-26] MEDS ORDERED: LIDOCAINE/EPINEPHRINE 2% 1:200,000 20 ML SDV ONE (00:45)
[2016-09-26] MEDS ORDERED: FENTANYL CITRATE INJ 50 MCG/1 ML 2 ML VIAL ONE (01:06)
[2016-09-26] MEDS ORDERED: ATROPINE SULFATE 0.1 MG/ML 5ML SYR IV PRN (01:45)
[2016-09-26] MEDS ORDERED: HYDROmorphone INJ 1 MG/ML SYR IV PRN (01:45)
[2016-09-26] MEDS ORDERED: ONDANSETRON INJ 2 MG/ML 2 ML VIAL IV PRN ×3 (01:45→20:00)
[2016-09-26] MEDS ORDERED: LABETALOL HCL IV 5 MG/ML 20ML IV PRN (01:45)
[2016-09-26] MEDS ORDERED: EpHEDrine SULFATE INJ 50 MG/ML AMP IV PRN ×2 (01:45→02:00)
[2016-09-26] MEDS ORDERED: FENTANYL CITRATE INJ 50 MCG/1 ML 2 ML VIAL IV PRN (01:45)
[2016-09-26] MEDS ORDERED: MEPERIDINE HCL 25 MG/ML CARP IV PRN (01:45)
[2016-09-26] MEDS ORDERED: NALOXONE HCL INJ 0.08 MG in SYRINGE 1.8 ML IV PRN (01:46)
[2016-09-26] MEDS ORDERED: NALOXONE HCL INJ 1 MG in SODIUM CHLORIDE 0.9% 1000ML 1,000 ML IV PRN (01:46)
[2016-09-26] MEDS ORDERED: SODIUM CHLORIDE 0.9% 1000ML 1,000 ML IV PRN (01:46)
[2016-09-26] MEDS ORDERED: LACTATED RINGER'S 1000ML 500 ML IV PRN (01:46)
[2016-09-26] MEDS ORDERED: MoRPHine SULFATE PF 1 MG/ML 10 ML AMP/VIAL EPI PRN (02:00)
[2016-09-26] MEDS ORDERED: OXYTOCIN INJ 10 UNITS/ML VIAL ONE (02:00)
[2016-09-26] MEDS ORDERED: PROMETHAZINE HCL INJ 25 MG in SODIUM CHLORIDE 0.9% 50ML 50 ML IV PRN ×2 (02:00→20:00)
[2016-09-26] MEDS ORDERED: NALOXONE HCL 0.4 MG/1 ML VIAL/CARP IV PRN (02:00)
[2016-09-26] MEDS ORDERED: NALBUPHINE HCL INJ 10 MG/ML AMP IV PRN (02:00)
[2016-09-26] MEDS ORDERED: DiphenhydrAMINE HCL 50 MG/ML VIAL IV PRN ×3 (02:00→20:00)
[2016-09-26] MEDS ORDERED: NO NARCOTICS OR SEDATIVES SCH (02:00)
[2016-09-26] MEDS ORDERED: MoRPHine SULFATE 2 MG/ML CARP IV PRN (02:00)
[2016-09-26] MEDS ORDERED: MoRPHine SULFATE PF 1 MG/ML 10 ML AMP/VIAL ONE (02:00)
[2016-09-26] MEDS ORDERED: METOCLOPRAMIDE HCL INJ 20 MG in SODIUM CHLORIDE 0.9% 50ML 50 ML IV PRN (02:00)
[2016-09-26] MEDS ORDERED: DC INTRASPINAL MORPHINE SCH (02:00)
[2016-09-26] MEDS ORDERED: LACTATED RINGER'S 1000ML 1,000 ML IV SCH (02:07)
[2016-09-26] MEDS ORDERED: MEASLES, MUMPS & RUBELLA VIRUS VIAL SQ. ONE (02:15)
[2016-09-26] MEDS ORDERED: MAGNESIUM HYDROXIDE SUSP 30 ML UDC PO PRN (02:15)
[2016-09-26] MEDS ORDERED: LANOLIN OINT EXT PRN ×2 (02:15)
[2016-09-26] MEDS ORDERED: BENZOCAINE 20% AER SPR 82.5 GM CAN EXT PRN (02:15)
[2016-09-26] MEDS ORDERED: SUPERCREAM 0.870 % 15GM JAR EXT PRN (02:15)
[2016-09-26] MEDS ORDERED: SENNA 8.6 MG TAB PO PRN (02:15)
[2016-09-26] MEDS ORDERED: DIPHTHERIA/TETANUS/PERTUSSIS 0.5 ML SYR/VIAL IM. ONE (02:15)
[2016-09-26] MEDS ORDERED: HYDROCORTISONE ACETATE 25 MG SUPP PR PRN (02:15)
--- NOTE | 2016-09-26 02:18 | [facility] Post Operative Brief Note ---
Immediate Operative Summary Operative Date Sep 26, 2016. Pre-Operative Diagnosis ARREST OF DESCENT, OP Post-Operative Diagnosis SAME Procedure(s) Performed [facility] Surgeon JANELLE Building Consultant Surgeon(s) Nichole Phan RN Estimated Blood Loss 600 Findings Viable male , OP Normal uterus, ovaries and fallopian tubes Fluids (cc crystalloids) 1100 Specimens PLACENTA, CORD BLOOD Drains 100 ML URINE Anesthesia EPIDURAL Complication(s) None Disposition L&D
[2016-09-26] MEDS: IPRATROPIUM BROMIDE HFA INHALER INH SCH ×5 (02:21→20:13)
[2016-09-26] MEDS: KETOROLAC TROMETHAMINE 30 MG/ML VIAL IV. PRN ×2 (02:26→18:04)
[2016-09-26] MEDS: OXYTOCIN INJ 20 UNITS in LACTATED RINGER'S 1000ML 1,000 ML IV SCH ×2 (02:39→11:53)
[2016-09-26] MEDS: MEPERIDINE HCL 25 MG/ML CARP IV PRN ×3 (02:44→15:51)
--- NOTE | 2016-09-26 04:51 | OPERATIVE REPORT ---
DATE OF OPERATION: 09/26/2016 PREOPERATIVE DIAGNOSIS: The patient is a 31-year-old G1, P0 at 39 weeks and 2 days of gestation with a history of chronic hypertension, on labetalol, history of chronic back pain, on gabapentin, history of anxiety and OCD, on Lexapro, active labor with arrest of descent at second stage of labor and persistent occiput posterior presentation. POSTOPERATIVE DIAGNOSIS: Same. PROCEDURE: Primary low transverse with Pfannenstiel skin incision. SURGEON: Dr. Medina. SERVICING REP: Nichole Phan RN. ESTIMATED BLOOD LOSS: 600. FLUIDS: 1100 mL of lactated Ringer's. SPECIMENS: Placenta and cord blood. DRAINS: Hernandez drained 100 mL of clear urine. ANESTHESIA: Epidural, Dr. Altamirano. COMPLICATIONS: None. FINDINGS: Baby was a viable male infant delivered at 01:12 a.m., 2840 grams. Apgars 3 at 1 minute, 5 at 5 minutes and 8 at 10 minutes. Maternal findings, normal uterus, fallopian tubes, ovaries and morbid obesity. INDICATION FOR THE PROCEDURE: The patient is a 31-year-old G1, P0 at 39 weeks and 1 day of gestation, who presented to labor and delivery on the morning of 09/25/2016 with contractions and cervical change. She was admitted for labor. She received epidural for pain and then her membranes were ruptured and her contractions were augmented with Pitocin. heart rate has been category 1 with occasional decelerations, making it temporarily a category 2 and with spontaneous recovery to category 1. She progressed to fully dilatation and pushed for over 2 hours and labored down for about an hour and no change in the station of head. Persistent occiput posterior presentation confirmed with bedside ultrasoundx2. Recommended delivery via a . See QS notes for details. She understood the risks and benefits and signed informed consent. DESCRIPTION OF PROCEDURE: The patient was taken to the operating room, where epidural anesthesia was given to be adequate. She was placed in dorsal supine position with a leftward tilt. Vagina was prepped and washed with Betadine solution. A Hernandez was inserted into the bladder. She was prepared and draped in the usual sterile fashion. A Pfannenstiel skin incision was made and carried through to the underlying layer of fascia with the Bovie. Fascia was incised in the midline and incision extended laterally with the help of Tavares scissors. Lower aspect of the fascial incision was then grasped with 2 Abran clamps and elevated, underlying rectus muscles were dissected off sharply and upper aspect of the fascial incision was then grasped with 2 Abran clamps, elevated, the underlying rectus muscles were dissected sharply with Tavares scissors. Rectus muscles were then in the midline and peritoneum was entered bluntly and the incision was extended superiorly and inferiorly with good visualization of the bladder. Bladder blade was inserted. Vesicouterine peritoneum was identified, grasped with pickups and entered sharply with Metzenbaum scissors. Bladder flap was created digitally and bladder blade was reinserted. Lower uterine segment was incised in transverse fashion. Incision was extended laterally with the help of fingers and the head was found to be in occiput posterior position, facing upwards toward the anterior pubic bone. head was down in the vagina. It was gently brought up to the incision and then it was delivered without difficulty. Shoulders were delivered with minimal traction. Mouth and nose were suctioned. Cord was clamped x2 and cut and baby was handed off to the awaiting cafeteria server, Dr. Obrien. Then the cord blood was obtained for gases. Placenta was delivered manually, intact and complete. Uterus was exteriorized, cleared of all clots and debris. The corners of the incision were held with ring forceps. The incision was repaired with 0 Vicryl in a running locked fashion and a second imbricating layer was placed over the first layer in a running locked fashion. Excellent hemostasis was achieved. Uterus was returned to the abdomen and pelvis was irrigated with warm normal saline and suctioned. Incision was checked to be hemostatic. The parietal peritoneum was reapproximated with 3-0 Vicryl in a running fashion. Rectus fascia was reapproximated from the lower part with U sutures x2 with a 3-0 Vicryl. Then the rectus fascia was reapproximated with #1 Vicryl in a running fashion. Subcuticular fat tissue was reapproximated with 2-0 chromic catgut in a running fashion. Skin was closed with 4-0 Monocryl in a subcuticular fashion. The patient tolerated the procedure well. Sponge, lap and needle counts were correct x3. She was given 3 grams of cefazolin before surgery. She was taken to the recovery room in stable condition. I was present during whole procedure. I attest to the content of the Intraoperative Record and any orders documented therein. Any exceptions are noted below. GENAROD
--- NOTE | 2016-09-26 06:30 | Anesthesiology Progress Note ---
Anesthesia Post Op Note Date & Time Sep 26, 2016 at 06:30 Vital Signs Pain Intensity: 6.0 Notes Mental Status: alert / awake / arousable, participated in evaluation Pt Amnestic to Procedure: Yes Nausea / Vomiting: adequately controlled Pain: adequately controlled Airway Patency, RR, SpO2: stable & adequate BP & HR: stable & adequate Hydration State: stable & adequate Neuraxial Anesthesia: was administered, sensory block is resolving Anesthetic Complications: no major complications apparent
--- NOTE | 2016-09-26 06:33 | Anesthesiology Progress Note ---
Anesthesia Post Op Note Date & Time Sep 26, 2016 at 06:32 Vital Signs Pain Intensity: 6.0 Notes Mental Status: alert / awake / arousable, participated in evaluation Pt Amnestic to Procedure: Yes Nausea / Vomiting: adequately controlled Pain: adequately controlled Airway Patency, RR, SpO2: stable & adequate BP & HR: stable & adequate Hydration State: stable & adequate Neuraxial Anesthesia: was administered, sensory block is resolving Anesthetic Complications: no major complications apparent
[2016-09-26] MEDS: LABETALOL HCL 100 MG TAB PO SCH ×2 (07:33→20:13)
[2016-09-26] MEDS: ESCITALOPRAM OXALATE 20 MG TAB PO SCH (07:34)
[2016-09-26] MEDS: DOCUSATE SODIUM 100 MG CAP PO SCH ×2 (07:35→20:13)
[2016-09-26] MEDS: FERROUS SULFATE 325 MG TAB PO SCH (07:35)
[2016-09-26] MEDS: PRENATAL VITAMIN TAB PO SCH (07:37)
[2016-09-26] MEDS ORDERED: CITALOPRAM 20 MG TAB PO SCH (08:00)
[2016-09-26] MEDS ORDERED: CEFAZOLIN IV 3,000 MG in DEXTROSE 5% 50ML 50 ML IV SCH (09:00)
[2016-09-26] MEDS: SIMETHICONE 80 MG CHEW PO SCH ×4 (09:15→20:13)
[2016-09-26] MEDS: ALBUTEROL 0.083% NEBU SOLN 3 ML VIAL INH SCH ×4 (09:36→20:29)
[2016-09-26 09:41] LABS: BASO ABS # 0.01 K/uL (0-0.2); COMPLETE YES; EOS % 0.3 %; HEMATOCRIT 31.1 % (37-47); IG% 0.4 %; LYMPH % 7.7 %; LYMPH ABS # 1.61 K/uL (1.2-3.4); MEAN CELL VOLUME 97.2 fL (80-100); MEAN CORPUSCULAR HEMOGLOBIN 33.4 pg (25-34); MEAN CORPUSCULAR HGB CONC 34.4 g/dl (32-36); MEAN PLATELET VOLUME 9.7 fL (7.4-10.4); MONO % 3.6 %; PLATELET COUNT 253 K/uL (130-400); WHITE BLOOD COUNT 20.84 K/uL (4.8-10.8)
[2016-09-26 10:06] LABS: BUN/CREATININE RATIO 18.6 (10-20); CALCIUM 8.7 mg/dl (8.5-10.1); CREATININE 0.7 mg/dl (0.60-1.20); POTASSIUM 3.9 mmol/L (3.5-5.1)
[2016-09-26 10:10] LABS: ALB/GLOB RATIO 0.6 (0.9-2)
--- NOTE | 2016-09-26 10:47 | DIAGNOSTIC IMAGING REPORT ---
BILATERAL LOWER EXTREMITY VENOUS DOPPLER HISTORY: leg EDEMA, TACHYCARDIA, LOW O2 SAT COMPARISON STUDY: None. FINDINGS: There is normal compressibility, flow, and augmentation within the bilateral lower extremity deep venous systems. IMPRESSION: No DVT within the right or left lower extremity. Electronically signed by: Nura Edgar M.D. 09/26/2016 10:46 AM Dictated Date/Time: 09/26/2016 10:45 AM
[2016-09-26] MEDS ORDERED: RANITIDINE HCL 150 MG TAB PO PRN (14:15)
[2016-09-26] MEDS ORDERED: LORATADINE 10 MG TAB PO PRN (14:15)
[2016-09-26] MEDS ORDERED: MEPERIDINE HCL 50 MG/ML CARP IV PRN ×2 (20:00)
[2016-09-26] MEDS ORDERED: KETOROLAC TROMETHAMINE 30 MG/ML VIAL IV. PRN (20:00)
[2016-09-26] MEDS: GABAPENTIN 300 MG CAP PO SCH (20:13)
[2016-09-27] VITALS (10 sets, daily range): BP systolic 126–151; BP diastolic 80–90; PULSE 74–127; TEMP 36.6–37; O2SAT 94–97
[2016-09-27] MEDS: IPRATROPIUM BROMIDE HFA INHALER INH SCH ×6 (01:08→19:57)
[2016-09-27] MEDS: OXYCODONE/ACETAMINOPHEN 5-325 TAB PO PRN ×6 (01:08→21:52)
[2016-09-27] MEDS: ALBUTEROL 0.083% NEBU SOLN 3 ML VIAL INH SCH ×5 (02:17→19:26)
[2016-09-27] MEDS ORDERED: NURSING VERBAL MED ORDER ONE ×2 (07:00→16:45)
[2016-09-27 08:08] LABS: HEMATOCRIT 30.7 % (37-47); MEAN CELL VOLUME 98.7 fL (80-100); MEAN CORPUSCULAR HEMOGLOBIN 33.1 pg (25-34); MEAN CORPUSCULAR HGB CONC 33.6 g/dl (32-36); MEAN PLATELET VOLUME 9.5 fL (7.4-10.4); PLATELET COUNT 279 K/uL (130-400); RED BLOOD COUNT 3.11 M/uL (4.2-5.4); WHITE BLOOD COUNT 19.49 K/uL (4.8-10.8)
[2016-09-27] MEDS: PRENATAL VITAMIN TAB PO SCH (08:20)
[2016-09-27] MEDS: FERROUS SULFATE 325 MG TAB PO SCH (08:20)
[2016-09-27] MEDS: ESCITALOPRAM OXALATE 20 MG TAB PO SCH (08:20)
[2016-09-27] MEDS: SIMETHICONE 80 MG CHEW PO SCH ×4 (08:21→19:58)
[2016-09-27] MEDS: GABAPENTIN 300 MG CAP PO SCH ×3 (08:21→19:58)
[2016-09-27] MEDS: DOCUSATE SODIUM 100 MG CAP PO SCH ×2 (08:21→19:58)
[2016-09-27] MEDS: LABETALOL HCL 100 MG TAB PO SCH ×3 (08:22→20:01)
[2016-09-27 08:48] LABS: BASO % 0.1 %; BASO ABS # 0.01 K/uL (0-0.2); COMPLETE YES; EOS % 0.9 %; IG% 0.7 %; LYMPH ABS # 1.56 K/uL (1.2-3.4); MONO % 4.5 %; NEUT % 85.8 %
--- NOTE | 2016-09-27 10:41 | Surgery Progress Note ---
Surgery Progress Note Date of Service Sep 27, 2016. 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, No nausea, No vomiting Objective Vital Signs: Date Time Temp Pulse Resp B/P (MAP) Pulse Ox O2 Delivery O2 Flow Rate FiO2 09/27/16 08:00 74 16 94 Room Air 09/27/16 04:30 36.9 108 20 150/90 (110) 96 Room Air 09/27/16 02:35 151/90 (110) 09/27/16 00:30 97 Room Air 09/27/16 00:30 36.6 108 20 151/86 (107) 97 Room Air 09/26/16 22:18 92 16 95 Room Air 09/26/16 21:30 95 Room Air 09/26/16 20:10 36.7 108 20 136/84 (101) 95 Room Air 09/26/16 19:25 20 95 09/26/16 18:00 24 97 09/26/16 17:35 24 93 09/26/16 16:00 24 95 09/26/16 15:40 95 Room Air 09/26/16 15:40 36.6 114 24 143/74 (97) 95 Room Air 09/26/16 15:00 24 96 09/26/16 14:18 112 16 93 Room Air 09/26/16 14:00 20 96 09/26/16 13:00 24 94 09/26/16 12:00 36.5 112 30 94/52 (66) 94 Room Air 09/26/16 12:00 30 94 09/26/16 12:00 94 Room Air 09/26/16 12:00 94 Room Air General Appearance: WD/WN, no apparent distress Head: normocephalic, atraumatic Neck: supple, no adenopathy, thyroid normal, no JVD, no carotid bruits, trachea midline Respiratory/Chest: chest non-tender, lungs clear, normal breath sounds, no respiratory distress, no accessory muscle use Cardiovascular: regular rate, rhythm, no edema, no gallop, no JVD, no murmur Abdomen: normal bowel sounds, non tender, non distended, soft, no organomegaly , no pulsatile mass Incision(s): clean, dry, intact, no erythema, no drainage Extremities: normal range of motion, non-tender, normal inspection, no pedal edema, no calf tenderness, normal capillary refill, pelvis stable Laboratory Results: Results Past 24 Hours Test 09/27/16 07:45 Range/Units White Blood Count 19.49 4.8-10.8 K/uL Red Blood Count 3.11 4.2-5.4 M/uL Hemoglobin 10.3 12.0-16.0 g/dL Hematocrit 30.7 37-47 % Mean Corpuscular Volume 98.7 80-100 fL Mean Corpuscular Hemoglobin 33.1 25-34 pg Mean Corpuscular Hemoglobin Concent 33.6 32-36 g/dl Platelet Count 279 130-400 K/uL Mean Platelet Volume 9.5 7.4-10.4 fL Neutrophils (%) (Auto) 85.8 % Lymphocytes (%) (Auto) 8.0 % Monocytes (%) (Auto) 4.5 % Eosinophils (%) (Auto) 0.9 % Basophils (%) (Auto) 0.1 % Neutrophils # (Auto) 16.73 1.4-6.5 K/uL Lymphocytes # (Auto) 1.56 1.2-3.4 K/uL Monocytes # (Auto) 0.88 0.11-0.59 K/uL Eosinophils # (Auto) 0.18 0-0.5 K/uL Basophils # (Auto) 0.01 0-0.2 K/uL RDW Standard Deviation 49.3 36.4-46.3 fL RDW Coefficient of Variation 13.9 11.5-14.5 % Immature Granulocyte % (Auto) 0.7 % Immature Granulocyte # (Auto) 0.13 0.00-0.02 K/uL Assessment & Plan regular diet c/sec day #1 pt doing well continue day # 1 care Gest HTn on labetalol 100mg TID Hx of Asthma on inhalers
[2016-09-27] MEDS ORDERED: BISACODYL 5 MG TABEC PO ONE (22:00)
[2016-09-28] VITALS (8 sets, daily range): BP systolic 136–155; BP diastolic 77–94; PULSE 104–114; TEMP 36.3–36.7; O2SAT 95–99
[2016-09-28] MEDS: IPRATROPIUM BROMIDE HFA INHALER INH SCH ×6 (00:09→20:00)
[2016-09-28] MEDS ORDERED: BISACODYL 10 MG SUPP PR PRN (02:15)
[2016-09-28] MEDS: ALBUTEROL 0.083% NEBU SOLN 3 ML VIAL INH SCH ×5 (02:19→20:00)
[2016-09-28] MEDS: OXYCODONE/ACETAMINOPHEN 5-325 TAB PO PRN ×5 (03:13→22:53)
[2016-09-28] MEDS: DOCUSATE SODIUM 100 MG CAP PO SCH ×2 (08:25→20:23)
[2016-09-28] MEDS: ESCITALOPRAM OXALATE 20 MG TAB PO SCH (08:25)
[2016-09-28] MEDS: FERROUS SULFATE 325 MG TAB PO SCH (08:25)
[2016-09-28] MEDS: GABAPENTIN 300 MG CAP PO SCH ×3 (08:26→20:23)
[2016-09-28] MEDS: LABETALOL HCL 100 MG TAB PO SCH ×3 (08:26→20:23)
[2016-09-28] MEDS: SIMETHICONE 80 MG CHEW PO SCH ×4 (08:26→20:23)
[2016-09-28] MEDS: PRENATAL VITAMIN TAB PO SCH (08:27)
--- NOTE | 2016-09-28 11:31 | OB/GYN Progress Note ---
[employer]COS[employer] INSPECTOR Progress Note Date of Service Sep 28, 2016. Subjective conversation w/ patient, physical exam Ambulation: ambulating normally Voiding: no voiding problems Passing Gas: Yes Diet Tolerance: Regular Diet Lochia: Small Feeding Type: Bottle Feeding Pain: 05/29 Notes: Doing better today. Pain better controlled. Ambulating without difficulty. Incision is c/d/i. Lochia minimal. Tolerating regular diet, +flatus, -BM. Objective Vital Signs Date Time Temp Pulse Resp B/P (MAP) Pulse Ox O2 Delivery O2 Flow Rate FiO2 09/28/16 07:59 36.3 108 22 143/78 (99) 97 Room Air 09/28/16 07:15 104 18 97 Room Air 09/28/16 03:22 109 16 98 Room Air 09/28/16 00:05 36.7 108 18 136/77 (96) 95 Room Air 09/28/16 00:05 95 Room Air 09/27/16 19:55 92 140/85 (103) 09/27/16 17:22 36.7 112 20 126/80 (95) 96 Room Air 09/27/16 16:15 96 Room Air 09/27/16 14:31 120 16 96 Room Air 09/27/16 14:30 111 131/80 (97) Physical Exam General Appearance: WELL-APPEARING Respiratory/Chest: chest non-tender, lungs clear Cardiovascular: regular rate, rhythm Abdomen: normal bowel sounds, soft Fundus: Firm Incision Description: Clean, Dry & Intact Extremities: normal range of motion, non-tender, no calf tenderness Laboratory Results Last 24 Hours Test 09/28/16 07:01 Hemoglobin 9.6 g/dL Hematocrit 29.0 % Assessment and Plan Post-Op Day Number: 2 Continue Routine Care: -Continue routine postop care -Anticipate d/c home tomorrow
[2016-09-29] MEDS: IPRATROPIUM BROMIDE HFA INHALER INH SCH ×3 (00:23→12:42)
[2016-09-29] MEDS: ALBUTEROL 0.083% NEBU SOLN 3 ML VIAL INH SCH ×2 (02:03→07:42)
[2016-09-29 02:04] VITALS: PULSE 109; O2SAT 96
[2016-09-29 07:35] VITALS: BP 154/90; PULSE 121; TEMP 36.6; O2SAT 98
[2016-09-29] MEDS: OXYCODONE/ACETAMINOPHEN 5-325 TAB PO PRN ×2 (07:38→12:42)
[2016-09-29] MEDS: GABAPENTIN 300 MG CAP PO SCH ×2 (07:41→13:57)
[2016-09-29] MEDS: LABETALOL HCL 100 MG TAB PO SCH ×2 (07:41→13:57)
[2016-09-29] MEDS: SIMETHICONE 80 MG CHEW PO SCH ×2 (07:41→12:41)
[2016-09-29] MEDS: FERROUS SULFATE 325 MG TAB PO SCH (07:41)
[2016-09-29] MEDS: ESCITALOPRAM OXALATE 20 MG TAB PO SCH (07:42)
[2016-09-29 07:43] VITALS: PULSE 98; O2SAT 95
[2016-09-29] MEDS: PRENATAL VITAMIN TAB PO SCH (07:43)
[2016-09-29] MEDS: DOCUSATE SODIUM 100 MG CAP PO SCH (07:44)
[2016-09-29 10:05] VITALS: BP 123/82; PULSE 118; O2SAT 95
--- NOTE | 2016-09-29 10:46 | OB/GYN Progress Note ---
[employer] AGENT Progress Note Date of Service: Sep 29, 2016. Patient is seen and examined. She feels well, no complaints. Likes to be discharged Pain is under control with oral meds. Ambulating without dizziness Voiding without difficulty Tolerating regular diet with out N&V Flatus + BM neg Bleeding is minimal No fever/ chills/ CP/ SOB/ N&V/ Leg pain She thinks her asthma got worse after she started to take Labetalol 3 times a day She has been taking nebulizers and likes to d/c them I recommended to consult Hospitalist ans she agreed Breast and bottle feeding without problems Date Time Temp Pulse Resp B/P (MAP) Pulse Ox O2 Delivery O2 Flow Rate FiO2 09/29/16 10:05 118 20 123/82 (96) 95 Room Air 09/29/16 07:43 98 20 95 Room Air 09/29/16 07:35 98 Room Air 09/29/16 07:35 36.6 121 20 154/90 (111) 98 Room Air 09/29/16 02:04 109 20 96 Room Air 09/28/16 23:10 Room Air 09/28/16 20:00 114 16 98 Room Air 09/28/16 16:40 99 Room Air 09/28/16 16:40 36.7 113 22 155/94 (114) 99 09/28/16 14:20 142/85 (104) 09/28/16 14:12 108 20 97 Room Air Test 07/12/16 08:30 07/12/16 08:52 07/14/16 22:15 09/19/16 14:05 Urine Color YELLOW YELLOW Urine Appearance CLEAR CLOUDY Urine pH 8.5 H 7.0 Urine Specific [place] 1.013 1.012 Urine Protein NEG NEG Urine Glucose (UA) NEG NEG Urine Ketones NEG TRACE H Urine Occult Blood 3+ H TRACE H Urine Nitrite NEG NEG Urine Bilirubin NEG NEG Urine Urobilinogen NEG NEG Urine Leukocyte Esterase LARGE H LARGE H Urine WBC (Auto) 1-5 10-30 H Urine RBC (Auto) 10-30 H 5-10 H Urine Hyaline Casts (Auto) 1-5 1-5 Urine Epithelial Cells (Auto) >30 H >30 H Urine Bacteria (Auto) 1+ H 2+ H POC Glucose 98 H Immature Granulocyte % (Auto) 1.2 White Blood Count 13.71 H Red Blood Count 3.96 L Hemoglobin 12.5 Hematocrit 38.3 Mean Corpuscular Volume 96.7 Mean Corpuscular Hemoglobin 31.6 Mean Corpuscular Hemoglobin Concent 32.6 Platelet Count 289 Mean Platelet Volume 9.4 Neutrophils (%) (Auto) 71.7 Lymphocytes (%) (Auto) 17.8 Monocytes (%) (Auto) 8.1 Eosinophils (%) (Auto) 1.0 Basophils (%) (Auto) 0.2 Neutrophils # (Auto) 9.83 H Lymphocytes # (Auto) 2.44 Monocytes # (Auto) 1.11 H Eosinophils # (Auto) 0.14 Basophils # (Auto) 0.03 Immature Granulocyte # (Auto) 0.16 H Sodium Level 138 Potassium Level 4.1 Chloride Level 108 H Carbon Dioxide Level 23 Anion Gap 7.0 Blood Urea Nitrogen 12 Creatinine 0.60 Est Creatinine Clear Calc Drug Dose 155.3 Estimated GFR () 140.8 Estimated GFR (Non- 121.5 BUN/Creatinine Ratio 20.5 H Random Glucose 88 Calcium Level 9.1 Total Bilirubin < 0.1 L Aspartate Amino Transferase (AST) 21 Alanine Aminotransferase (ALT) 23 Alkaline Phosphatase 99 Total Protein 6.5 Albumin 2.4 L Globulin 4.1 H Albumin/Globulin Ratio 0.6 L Test 09/25/16 12:06 09/26/16 09:23 09/27/16 07:45 09/28/16 07:01 White Blood Count 16.08 H 20.84 H 19.49 H Red Blood Count 3.79 L 3.20 L 3.11 L Mean Corpuscular Volume 97.4 97.2 98.7 Mean Corpuscular Hemoglobin 33.5 33.4 33.1 Mean Corpuscular Hemoglobin Concent 34.4 34.4 33.6 RDW Standard Deviation 46.9 H 46.6 H 49.3 H RDW Coefficient of Variation 13.4 13.4 13.9 Platelet Count 296 253 279 Mean Platelet Volume 9.7 9.7 9.5 Prothrombin Time 9.4 Prothrombin Time INR 0.9 PTT 26.8 Partial Thromboplastin Ratio 1.0 Sodium Level 138 135 L Potassium Level 3.9 3.9 Chloride Level 106 105 Carbon Dioxide Level 22 22 Anion Gap 10.0 8.0 Blood Urea Nitrogen 15 13 Creatinine 0.55 L 0.70 Est Creatinine Clear Calc Drug Dose 171.6 136.0 Estimated GFR () 144.9 133.8 Estimated GFR (Non- 125.0 115.5 BUN/Creatinine Ratio 26.7 H 18.6 Random Glucose 88 106 H Calcium Level 9.5 8.7 Total Bilirubin 0.2 0.3 Aspartate Amino Transferase (AST) 25 74 H Alanine Aminotransferase (ALT) 26 33 Alkaline Phosphatase 111 83 Lactate Dehydrogenase 184 Total Protein 6.6 5.5 L Albumin 2.5 L 2.0 L Globulin 4.1 H 3.5 Albumin/Globulin Ratio 0.6 L 0.6 L Hemoglobin 10.7 L 10.3 L 9.6 L Hematocrit 31.1 L 30.7 L 29.0 L Neutrophils (%) (Auto) 88.0 85.8 Lymphocytes (%) (Auto) 7.7 8.0 Monocytes (%) (Auto) 3.6 4.5 Eosinophils (%) (Auto) 0.3 0.9 Basophils (%) (Auto) 0.0 0.1 Neutrophils # (Auto) 18.32 H 16.73 H Lymphocytes # (Auto) 1.61 1.56 Monocytes # (Auto) 0.75 H 0.88 H Eosinophils # (Auto) 0.06 0.18 Basophils # (Auto) 0.01 0.01 Immature Granulocyte % (Auto) 0.4 0.7 Immature Granulocyte # (Auto) 0.09 H 0.13 H PE: General: Alert, orientedx3, NAD CVS: S1S2 RRR Lungs; CTAB Abd: soft, NT, fundus firm, below Umbilicus Incision: Clean, dry, intact Perineum intact, Lochia rubra minimal Ext; NT, no edema AP: 31 yo s/p C Section, pod# 3 VSS Afebrile doing well clinically except asthma worsened after dose of Labetalol increased Consulted Hospitalist and they are coming to see her Blood work now Continue routine postop care Encourage ambulation, PO intake All questions were answered
--- NOTE | 2016-09-29 11:09 | Discharge Instructions ---
Discharge Instructions Date of Service Sep 29, 2016. Admission Reason for Admission: R/O Labor Discharge Discharge Diagnosis / Problem: Csection Discharge Goals Goal(s): Routine recovery after Medications Continue Dispensed Medications: lansinoh Activity Recommendations Activity Limitations: as noted below Lifting Limitations: no more than 10 pounds Exercise/Sports Limitations: until after follow-up appointment May Resume Sexual Activity: after follow-up appointment Shower/Bathe: keep incision dry Driving or Machine Use: ACTIVITY RECOMMENDATIONS: * Gradual return to full activity over the next 2-3 weeks. * No lifting - nothing heavier than baby over the next 2-3 weeks. * Do not engage in vigorous exercise, sexual activity or sports until cleared by your physician. * Do not drive or operate any motorized equipment until cleared by your physician. * You may shower/bathe daily. BREAST CARE: If you are not breast feeding: * Wear a supportive bra 24 hours a day for one to two weeks. * Avoid stimulating your breasts and nipples as much as possible during the first few weeks after delivery. * When taking a shower, have the warm water hit your back, not breasts. * When your breasts feel full, apply ice packs. Usually three to four times a day helps ease the discomfort. * Take a mild pain medication (Tylenol/Motrin) when you are uncomfortable. If breast feeding: * Use breast milk to lubricate nipples. Lansinoh cream may be used for sore nipples. You do not need to remove cream prior to breast feeding. If using a different brand of cream, check the label for directions regarding removal of cream prior to nursing. * Wear a supportive bra. * If having problems with breasts or breast feeding, call a multi site leasing consultant or your health care provider. OVER THE COUNTER MEDICATION: * For discomfort or pain, you may use Acetaminophen (Tylenol), Ibuprofen (Advil ), or Naproxen (Aleve) following the package directions. * For constipation you may use Colace following the package directions. SPECIAL CARE INSTRUCTIONS: When you are discharged from the hospital, it is important for you to follow the instructions listed below: * During the first week at home, you should be able to care for yourself and your baby. In addition, the usual light household activities are encouraged. * Limit your activities to the way you feel. Do not try to clean the house or move furniture. Be sensible. * If you actively engage in sports and have done so up until the time of your delivery, you may resume these activities as soon as you feel able. This may take up to one month or even longer. Use good judgment. * Continue to take your vitamins for at least six weeks after the of your baby. * Your diet need not be limited unless you were on a special diet before your delivery. Breast-feeding mothers need around 2500 calories per day and at least 64-80 ounces of fluid per day (8 to 10 glasses). * You should eat foods from the four major food groups. Crash diets or fad diets are to be avoided. Eating lean meats, fresh fruits and vegetables, low-fat dairy products, high fiber foods and a regular exercise program, will help you get back to your pre- weight without putting your health at risk. * Constipation is sometimes a problem after delivery. Take a mild laxative as needed. If breast feeding, Milk of Magnesia is acceptable to use. You may use a suppository or Fleets enema if no episiotomy. * A daily shower or tub bath is suggested. Be sure to thoroughly and gently dry the perineum. * A bloody vaginal discharge will usually continue until around four weeks post . A small amount of bleeding may continue for as long as six weeks. Vaginal discharge changes from the bright red bleeding after delivery to pink then brownish and finally yellowish-pink before becoming white and disappearing. * Bleeding may increase with activity. Your first period may come in 4-8 weeks. If you are breast feeding, your period may be delayed even longer. * [place] (sex) can begin whenever both you and your partner feel comfortable and do not have any form of genital infection. It is recommended that you wait at least six weeks for internal and external healing to occur. If you have questions, please talk to your health care practitioner. A condom should be used to prevent infection and . * Foreplay, gentle intercourse and lubrication is very important the first several times to prevent pain. A water-based lubricant such as K-Y jelly or Astroglide may be used. * Tampons and/or Douching should be avoided until after six weeks check-up. * If you have RH negative blood and your baby is RH positive, you will receive RHOGAM by injection prior to discharge. The nurse will give you a card to keep with you that has the date and place that you received RHOGAM after delivery. * During your care, you had a Rubella screen done to check for the presence of rubella antibodies in your blood. If your test was negative, you will receive a Rubella vaccine prior to discharge. This vaccine may cause a fever, soreness at the injection site and flu-like symptoms. If these symptoms persist, notify your health care practitioner. is not advised for three months after a Rubella vaccine. * Verbalizes understanding of car seat law as reviewed with patient nursing. * Car Seat hand-out given and reviewed with patient by nursing. * Shaken baby information reviewed with patient by nursing. Call you doctor if: * Heavy bleeding (saturating several pads an hour) or passing clots the size of your fist. * A fever >101 degrees F (38.3 degrees C) on two occasions four hours apart and /or chills. * Unusual pain in the pelvic or vaginal areas. Pain should improve each day . * Call the doctor for any increased redness, drainage or swelling around the incision and any pain unrelieved by prescribed pain medication. * Any signs or symptoms of phlebitis (possible blood clots forming in the veins ): leg pain, warm, red or swollen area on leg. * "Baby Blues" lasting longer than two weeks. If you have any questions or concerns, call your health care practitioner at . FOLLOW-UP VISIT: * Incision check (staple removal) in 1 week. Please call doctor's office at to set up appointment. * Please call the office at to schedule a 6 week examination. It is important you keep this appointment. * It is important for you to make arrangements for either yearly or twice yearly check-ups thereafter. . Current Hospital Diet Patient's current hospital diet: Regular OB Diet Discharge Diet Recommended Diet: Regular Diet Procedures Procedures Performed: PRIMARY LOWER TRANSVERSE SECTION Pending Studies Studies pending at discharge: no Medical Emergencies . Who to Call and When: Medical Emergencies: If at any time you feel your situation is an emergency, please call 911 immediately. . Non-Emergent Contact Non-Emergency issues call your: Surgeon Call Non-Emergent contact if: temperature is above 100.5, your pain is not controlled, your pain is worsening, wound has increased drainage, wound has increased redness, wound has increased pain . . "Provider Documentation" section prepared by Chandu Medina. . VTE Core Measure Inpt VTE Proph given/why not?: Treatment not indicated
[2016-09-29 11:48] LABS: BASO % 0.1 %; BASO ABS # 0.02 K/uL (0-0.2); COMPLETE YES; EOS % 1.5 %; HEMATOCRIT 29.5 % (37-47); IG% 1.5 %; LYMPH ABS # 1.44 K/uL (1.2-3.4); MEAN CORPUSCULAR HEMOGLOBIN 33.2 pg (25-34); MEAN CORPUSCULAR HGB CONC 33.6 g/dl (32-36); MEAN PLATELET VOLUME 9.3 fL (7.4-10.4); MONO % 6.5 %; NEUT % 81.4 %; PLATELET COUNT 371 K/uL (130-400); RED BLOOD COUNT 2.98 M/uL (4.2-5.4); WHITE BLOOD COUNT 15.96 K/uL (4.8-10.8)
[2016-09-29 12:23] LABS: CREATININE 0.64 mg/dl (0.60-1.20)
[2016-09-29 12:24] LABS: BUN/CREATININE RATIO 15.2 (10-20); CALCIUM 8.9 mg/dl (8.5-10.1); POTASSIUM 3.3 mmol/L (3.5-5.1)
[2016-09-29 12:26] LABS: ALB/GLOB RATIO 0.4 (0.9-2)
[2016-09-29] MEDS ORDERED: LABE1TAB28 PO (12:57)
[2016-09-29] MEDS ORDERED: OXYC-57 PO (13:03)
[2016-09-29 13:55] VITALS: BP 139/82; PULSE 118; O2SAT 96
[2016-09-29] MEDS ORDERED: POTASSIUM CHLORIDE 20 MEQ TABCR PO ONE (14:15)
--- NOTE | 2016-09-29 14:40 | Medical Consult ---
Consultation Date of Consultation: Sep 29, 2016. Attending Physician: Canan. Medina MD Reason for Consultation: Hypertension, Asthma History of Present Illness 31 year old female who is POD# 3 planned . Delivery was uneventful. On 09/08, patient was seen in the gyne clinic and found to have an elevated blood pressure. She was started on Labetalol 100mg BID. When she came to the hospital to deliver, BP was elevated so Labetalol was increased to TID dosing. Patient feels as though her breathing has been a little worse since starting the Labetalol. The albuterol has not been working so she was given an Atrovent inhaler. Currently patient reports she is feeling good. She feels like her breathing is well controlled. She has been having episodes of shortness of breath while being in the hospital, however she attributes this to the dry air. She denies chest pain and palpitations. Lower extremity edema is improving. She denies headache, blurred vision, lightheadedness, dizziness, or syncopal events. She reports her incisional pain is well controlled with current pain medications given. No nausea or vomiting. She denies fever and chills. No urinary symptoms. Past Medical/Surgical History Medical Problems: (1) Anxiety Status: Chronic (2) Asthma Status: Chronic (3) HTN (hypertension) Status: Chronic (4) Tobacco abuse Status: Chronic Surgical Problems: (1) Hx of tonsillectomy Status: Chronic (2) S/P nasal septoplasty Status: Chronic Family History FH: lupus MOTHER Social History Smoking Status: Current Every Day Smoker Alcohol Use: none Allergies Coded Allergies: No Known Allergies (Unverified , 09/28/16) Home Medications Active Percocet 5MG/325MG (Oxycodone/Acetaminophen) Tab 1-2 Tab PO Q4H PRN PAIN Normodyne (Labetalol HCl) 200 Mg Tab 100 Mg PO UD 6 Days Take one tab twice daily for two days, then take one tab daily for two days, then stop. Atrovent Hfa (Ipratropium Penrose) 200 Puffs/3400 Mcg Aers 2 Puffs INH QID Reported Zantac (Ranitidine HCl) 150 Mg Tab 1 Tab PO BID PRN 90 Days Claritin (Loratadine) 10 Mg Tab 10 Mg PO DAILY PRN Ventolin Hfa (Albuterol) 200 Puffs/92051 Mcg Aers 2 Puffs INH Q6H PRN Vitamin (Prenat Multivit/Bivins/Iron/Folic Ac) Tab 1 Tab PO DAILY Neurontin (Gabapentin) 300 Mg Cap 300 Mg PO TID Lexapro (Escitalopram Oxalate) 10 Mg Tab 10 Mg PO DAILY Current Inpatient Medications Current Inpatient Medications Medications (Trade) Dose Ordered Sig/Linda Route Start Time Stop Time Status Last Admin Dose Admin Albuterol Sulfate (Ventolin 0.083% 2.5MG/3ML Neb) 2.5 mg Q6R PRN INH 09/25/16 12:30 10/25/16 12:29 09/26/16 22:18 2.5 MG Oxytocin (Pitocin IV) 30 units UD PRN IV 09/25/16 17:30 10/25/16 17:29 09/25/16 18:07 30 UNITS Acetaminophen (Tylenol Tab) 650 mg Q4H PRN PO 09/25/16 18:15 10/25/16 18:14 09/25/16 18:47 650 MG Ipratropium Penrose (Atrovent Hfa Inhaler) 2 puffs Q4 INH 09/26/16 00:00 10/26/16 00:00 09/29/16 07:40 2 PUFFS Lactated Ringer's 1,000 ml @ 1,000 mls/hr Q1H IV 09/25/16 23:59 10/25/16 23:58 Oxytocin 20 units/ Lactated Ringer's 1,002 ml @ 125 mls/hr Q8H1M IV 09/26/16 02:30 10/26/16 02:29 09/26/16 11:53 125 MLS/HR Lactated Ringer's 1,000 ml @ 125 mls/hr Q8H IV 09/26/16 02:07 10/26/16 02:06 Ketorolac Tromethamine (Toradol Inj) 30 mg Q6H PRN IV. 09/26/16 20:00 10/01/16 19:59 Meperidine HCl (Demerol Inj) 50 mg Q4H PRN IV 09/26/16 20:00 10/10/16 19:59 Meperidine HCl (Demerol Inj) 75 mg Q4H PRN IV 09/26/16 20:00 10/10/16 19:59 Promethazine HCl 25 mg/Sodium Chloride 51 ml @ 204 mls/hr Q4H PRN IV 09/26/16 20:00 10/26/16 19:59 Ondansetron HCl (Zofran Inj) 4 mg Q4H PRN IV 09/26/16 20:00 10/26/16 19:59 Prenat Multivit/ Bivins/Iron/Folic Ac ( Vitamin Tab) 1 tab DAILY PO 09/26/16 08:00 10/26/16 07:59 09/29/16 07:43 1 TAB Bisacodyl (Dulcolax Supp) 10 mg PRN PRN SD 09/28/16 02:15 10/28/16 02:14 Docusate Sodium (coLACE CAP) 100 mg BID PO 09/26/16 08:00 10/26/16 07:59 09/29/16 07:44 100 MG Magnesium Hydroxide (Milk Of Magnesia Susp) 30 ml HS PRN PO 09/26/16 02:15 10/26/16 02:14 Ferrous Sulfate (Feosol Tab) 325 mg DAILY PO 09/26/16 08:00 10/26/16 07:59 09/29/16 07:41 325 MG Cocaine HCl (Supercream 0.870% Cr) BID PRN EXT 09/26/16 02:15 10/10/16 02:14 Lanolin (Lanolin Oint) PRN PRN EXT 09/26/16 02:15 10/26/16 02:14 Hydrocortisone Acetate (Anusol Hc Supp) 25 mg BID PRN SD 09/26/16 02:15 10/26/16 02:14 Benzocaine (Dermoplast Aero Spr) 1 appln PRN PRN EXT 09/26/16 02:15 10/26/16 02:14 Simethicone (Mylicon Chew Tab) 80 mg QID PO 09/26/16 09:00 10/26/16 08:59 09/29/16 07:41 80 MG Diphenhydramine HCl (Benadryl Cap) 25 mg QID PRN PO 09/26/16 20:00 10/26/16 19:59 Diphenhydramine HCl (Benadryl Inj) 25 mg QID PRN IV 09/26/16 20:00 10/26/16 19:59 Senna (Senokot Tab) 17.2 mg HS PRN PO 09/26/16 02:15 10/26/16 02:14 Escitalopram Oxalate (Lexapro Tab) 20 mg QAM PO 09/26/16 08:00 10/26/16 07:59 09/29/16 07:42 20 MG Albuterol Sulfate (Ventolin 0.083% 2.5MG/3ML Neb) 2.5 mg Q6R INH 09/26/16 09:00 10/26/16 08:59 09/29/16 07:42 2.5 MG Gabapentin (Neurontin Cap) 300 mg TID PO 09/26/16 20:00 10/26/16 19:59 09/29/16 07:41 300 MG Loratadine (Claritin Tab) 10 mg DAILY PRN PO 09/26/16 14:15 10/26/16 14:14 09/28/16 08:28 10 MG Ranitidine HCl (zANTac TAB) 150 mg BID PRN PO 09/26/16 14:15 10/26/16 14:14 Labetalol HCl (Normodyne Tab) 100 mg TID PO 09/27/16 08:00 10/27/16 07:59 09/29/16 07:41 100 MG Oxycodone/ Acetaminophen (Percocet 5-325mg Tab) `1-2 tabs for pain 1 tab ... Q4H PRN PO 09/27/16 17:00 10/11/16 16:59 09/29/16 07:38 1 TAB Review of Systems ROS per HPI, all other systems reviewed and negative Physical Exam Date Time Temp Pulse Resp B/P (MAP) Pulse Ox O2 Delivery O2 Flow Rate FiO2 09/29/16 10:05 118 20 123/82 (96) 95 Room Air 09/29/16 07:43 98 20 95 Room Air 09/29/16 07:35 98 Room Air 09/29/16 07:35 36.6 121 20 154/90 (111) 98 Room Air 09/29/16 02:04 109 20 96 Room Air 09/28/16 23:10 Room Air 09/28/16 20:00 114 16 98 Room Air 09/28/16 16:40 99 Room Air 09/28/16 16:40 36.7 113 22 155/94 (114) 99 09/28/16 14:20 142/85 (104) 09/28/16 14:12 108 20 97 Room Air General Appearance: no apparent distress Head: normocephalic Eyes: normal inspection ENT: hearing grossly normal Neck: supple, no JVD Respiratory/Chest: lungs clear, normal breath sounds, no respiratory distress Cardiovascular: regular rate, rhythm, no edema, normal peripheral pulses Abdomen/GI: normal bowel sounds, soft, + tenderness (incisional) Extremities/Musculoskelatal: normal inspection, no calf tenderness Neurologic/Psych: no motor/sensory deficits, alert, normal mood/affect, oriented x 3 Skin: normal color, warm/dry Laboratory Results Last 24 Hours Test 09/29/16 10:51 White Blood Count 15.96 K/uL Red Blood Count 2.98 M/uL Hemoglobin 9.9 g/dL Hematocrit 29.5 % Mean Corpuscular Volume 99.0 fL Mean Corpuscular Hemoglobin 33.2 pg Mean Corpuscular Hemoglobin Concent 33.6 g/dl Platelet Count 371 K/uL Mean Platelet Volume 9.3 fL Neutrophils (%) (Auto) 81.4 % Lymphocytes (%) (Auto) 9.0 % Monocytes (%) (Auto) 6.5 % Eosinophils (%) (Auto) 1.5 % Basophils (%) (Auto) 0.1 % Neutrophils # (Auto) 12.98 K/uL Lymphocytes # (Auto) 1.44 K/uL Monocytes # (Auto) 1.04 K/uL Eosinophils # (Auto) 0.24 K/uL Basophils # (Auto) 0.02 K/uL RDW Standard Deviation 49.6 fL RDW Coefficient of Variation 13.7 % Immature Granulocyte % (Auto) 1.5 % Immature Granulocyte # (Auto) 0.24 K/uL Assessment & Plan 31 year old female who is post day #3 after uneventful delivery. Hospitalist service is consulted for HTN and asthma management. Patient was started on Labetalol a few weeks ago for BP control. She has noticed that her breathing has gotten a little worse since starting the Labetalol. Labetalol likely counter acting albuterol treatments making asthma difficult to control. BPs have been fairly well controlled while admitted. In an aide to help better control asthma, will have patient wean down on the Labetalol and follow up with her PCP early next week for BP check and possible initiation of alterative antihypertensive (i.e calcium channel toro). Patient was counseled extensively regarding smoking cessation. She was advised to use OTC nicotine gum or patch if really needed. Mild hypokalemia noted at 3.3 which was replaced, patient to have levels rechecked next week with PCP. Leukocytosis noted which is likely related to /recent delivery. Hgb stable at 9.9. Thank you for this consultation. We will follow the patient with you during their hospital stay. You can reach a [facility] via pager @ . I have seen and examined the patient and agree with the assessment and plan as stated above. She has had well-controlled asthma during her using only albuterol inh and nebs prn. She denies a h/o Advair or other inhaled steroid consistently. She was put on labetalol for a BP reading in the 160s systolic a couple of weeks ago, which inadvertently, knocked out any help from her ADNREY for PRN use. Furthermore, on review of her BP readings she was very well controlled prior to that one reading. Recommend a quick wean off this so that her asthma can remain in control, with repeat evaluation by her PCP next week. If at that time, she has elevated blood pressures consistently, would consider nifedipine or hydralazine as these would be better options in setting of asthma. Currently, she is not coughing and is not tachypneic or working to breathe. she has no wheezing on exam. She does have tachycardia likely secondary to excessive ANDREY use. She is stable to DC home from a medical perspective with strong recommendations to stop smoking and avoid nicotine replacement in the setting of breast feeding. Informed her that even if she smokes away from her baby, she may still negatively affect his breathing if she continues to smoke. She verbalized understanding with intent to comply. Defer to OB for post- state. Thank you for the consult. Reagan, DO Additional Copies To Jose Nicole D.O.; Samuel Street M.D.
[2016-09-29 15:10] VITALS: BP_DIAS 82; PULSE 118; TEMP 36.6
--- NOTE | 2016-10-05 09:44 | DISCHARGE SUMMARY ---
DETAILS OF ADMISSION: The patient is a 31-year-old G1, P0, at 39 weeks 2 days of gestation with a history of chronic hypertension, on labetalol; history of chronic back pain, on gabapentin; history of anxiety and OCD, on Lexapro and history of asthma, smoker. She was admitted to labor and delivery with contractions and cervical change on 09/25/16. She received epidural for pain and her membranes were ruptured and she received Pitocin augmentation. She progressed to full dilatation and pushed over 2 hours and labored down for about an hour. No change in station of head and persistent occiput posterior presentation noted. She delivered a viable baby boy via primary , see dictated operative note for details. In the postop period, she was doing well. Vital signs stable, afebrile. Urine output was good. On postop day #0, the patient was having wheezing while breathing and tachycardia. Her oxygen saturation was at low 90s. She has a history of asthma, her inhalers were started. She had EKG and Doppler ultrasound of lower extremities. They came back negative. She improved clinically. She continued her asthma medications, inhalers and nebulizers. On postop day #1 , the patient was doing well, ambulating and tolerating regular diet. She was afebrile. Her incision was clean, dry and intact. Her H&H was 10/30.7. Her labetalol dose was increased to 100 mg 3 times a day to control her BP. On postop day #2, the patient was doing well, ambulating, tolerating regular diet, passing gas. Vital signs were stable. Blood pressures were either normal or low, 140s/80s. Incision was clean, dry and intact. Her H&H was 9.6/29.0. On postop day #3, the patient was doing well. She wanted to go home. Vital signs stable, afebrile, and she told labetalol made her asthma worse. She wanted her asthma medications adjusted. I called medicine for consult. They came and they decreased her labetalol dose, tapered down, and they adjusted her asthma medications and they recommended to be discharged and follow up with her primary care. Her CBC was repeated. Her white count came down from 19,000 to 15,000. Her H&H was stable at 9.9/29.5. Her liver enzymes were within normal limits. So she was discharged on postop day #3. Discharge instructions were given when to call, prescriptions were written for pain, asthma and labetalol, and she is to be followed in the office in a week for blood pressure and incision check. All questions were answered. DAPHNE
== END 2016-09-29 15:10 | disposition home or self-care (01) | DRG 765 ==
LOC: C.OPB 11:13 → C.LD 11:13 → C.OPB 12:00 → C.LD 12:09 → C.OBG 09-26 11:44
PROVIDERS: ADMIT Obstetrics & Gynecology; ATTEND Obstetrics & Gynecology
PROC: 10D00Z1 Extraction of Products of Conception, Low, Open Approach (ICD-10-PCS; principal; 2016-09-26 00:23)
DX: O64.0XX0 Obstructed labor due to incomplete rotation of fetal head, not applicable or unspecified (principal); Z68.41 Body mass index [BMI] 40.0-44.9, adult; O62.1 Secondary uterine inertia; O13.4 Gestational [pregnancy-induced] hypertension without significant proteinuria, complicating childbirth; O99.214 Obesity complicating childbirth; O99.334 Smoking (tobacco) complicating childbirth; O99.344 Other mental disorders complicating childbirth; F42.9 Obsessive-compulsive disorder, unspecified; O99.52 Diseases of the respiratory system complicating childbirth; J45.909 Unspecified asthma, uncomplicated; O99.89 Other specified diseases and conditions complicating pregnancy, childbirth and the puerperium; E66.01 Morbid (severe) obesity due to excess calories; G89.29 Other chronic pain; Z3A.39 39 weeks gestation of pregnancy; Z37.0 Single live birth; O99.354 Diseases of the nervous system complicating childbirth

== ENCOUNTER 2020-01-29 15:51 | Inpatient (IN) ==
[2020-01-29] MEDS ORDERED: LACTATED RINGER'S 1,000 ML IV SCH ×2 (16:00→19:45)
[2020-01-29] MEDS ORDERED: PATIENT'S HEIGHT AND/OR WEIGHT NEEDED SCH (16:15)
[2020-01-29 16:36] LABS: Basophils # (auto) 0.04 K/uL (0-0.2); Basophils % (auto) 0.2 %; Eosinophils # (auto) 0.05 K/uL (0-0.5); Eosinophils % (auto) 0.3 %; Hematocrit (blood only) 33.2 % (37-47); Hemoglobin 11.6 g/dL (12.0-16.0); Immature Granulocytes # (auto) 0.39 K/uL (0.00-0.02); Lymphocytes # (auto) 2.08 K/uL (1.2-3.4); Lymphocytes % (auto) 10.8 %; Mean Corpuscular Hemoglobin 32.8 pg (25-34); Mean Corpuscular Hgb Conc 34.9 g/dL (32-36); Mean Corpuscular Volume 93.8 fL (80-100); Mean Platelet Volume 9.6 fL (7.4-10.4); Monocytes % (auto) 4.7 %; Neutrophils # (auto) 15.78 K/uL (1.4-6.5); Platelet Count 247 K/uL (130-400); RDW Coefficient of Variation 12.8 % (11.5-14.5); Red Blood Count 3.54 M/uL (4.2-5.4); White Blood Count 19.24 K/uL (4.8-10.8)
[2020-01-29 17:01] LABS: Alanine Aminotransferase 34 U/L (12-78); Albumin Level 2.7 gm/dl (3.4-5.0); Aspartate Aminotransferase 23 U/L (15-37); BUN Creatinine Ratio 20.5 (10-20); Bilirubin Direct < 0.1 mg/dl (0-0.2); Blood Urea Nitrogen 13 mg/dl (7-18); Calcium 8.9 mg/dl (8.5-10.1); Carbon Dioxide 23 mmol/L (21-32); Chloride 108 mmol/L (98-107); Creatinine Clr Calc Pharmacy 139.5 ml/min; Est GFR (African American) 134.3; Est GFR (Non-African American) 115.8; Glucose 81 mg/dl (70-99); Potassium 3.7 mmol/L (3.5-5.1); Sodium 139 mmol/L (136-145)
[2020-01-29 17:04] LABS: Albumin Globulin Ratio 0.8 (0.9-2); Alkaline Phosphatase 100 U/L (45-117); Bilirubin,Total 0.3 mg/dl (0.2-1); Globulin 3.6 gm/dl (2.5-4.0); Total Protein 6.3 gm/dl (6.4-8.2)
--- NOTE | 2020-01-29 17:11 | Anesthesiology Consultation ---
Date of Service January 29, 2020 Assessment & Plan (1) Encounter for pre-operative examination: Chart Review Chart Review: Acceptable Risk for Surgery and Patient NOT seen in Pre Admission Testing Consults Requested none ASA [id number] Proposed Anesthesia Anesthesia Type: Spinal Risk / Benefits Reviewed With: PT / POA / Parent / Guardian, Accepts Plan and Informed Consent Obtained History Height/Weight Height: 5 ft 2.5 in Weight: 104.326 kg Allergies Allergy/AdvReac Type Severity Reaction Status Date / Time No Known Allergies Allergy Verified 01/26/20 13:48 Medications Home Medications Medication Instructions Recorded Confirmed Last Taken albuterol sulfate [Ventolin HFA] 2 puff INHALATION Q6H PRN 07/09/18 01/29/20 01/16/20 gabapentin [Neurontin] 300 mg PO TID 07/09/18 01/29/20 01/29/20 13:00 loratadine [Claritin] 10 mg PO DAILY PRN 07/09/18 01/29/20 01/16/20 [id number] fumarate-FA 1 tab PO QAM 01/13/20 01/29/20 01/29/20 06:00 [] benzonatate 200 mg PO BID PRN 01/26/20 01/29/20 01/28/20 20:00 fluticasone propion-salmeterol 1 inh INHALATION BID 01/26/20 01/29/20 01/29/20 06:00 [Advair Diskus] nifedipine 30 mg PO TID 01/26/20 01/29/20 01/29/20 06:00 prednisone 20 mg PO DIRECTED 01/26/20 01/29/20 01/29/20 06:00 venlafaxine [Effexor] 75 mg PO QAM 01/26/20 01/29/20 01/29/20 06:00 NPO Date Last Intake of Fluids: 01/29/20 Time Last Intake of Fluids: 13:00 Date Last Intake of Solids: 01/29/20 Time Last Intake of Solids: 10:00 Past Medical History Medical History Anxiety Asthma Usually well controlled= current asthma exacerbation- sxs improving with steroids Depression History of recent hospitalization At [facility] due to hypertension, monitoring, asthma exac, rhinovirus discharged 01/19/20 Hypertension induced Myofascial pain syndrome OCD (obsessive compulsive disorder) Rhinovirus presently Exercise / Class Metabolic Activity III < 4 Walking/Shop/Light housework Past Family History Family History Father Diabetes Past Surgical History Surgical History History of History of tonsillectomy History of tooth extraction S/P nasal septoplasty Past Anesthesia History No Hx of Anesthesia Complications and No Family Hx of Anesthesia Complications History of PONV No Hx of PONV and No Hx of Motion Sickness Social History Smoking Status: Never smoker Do You Dip or Chew Tobacco: No Hx Alcohol Use: No Hx Substance Use: No substance use type: does not use Physical Exam Vital Signs Last Vital Signs Temp 36.6 C 01/29/20 16:18 Pulse 84 01/29/20 16:47 Resp 18 01/29/20 16:18 BP 182/103 H 01/29/20 16:47 Testing Laboratory Results 01/29/20 16:23 01/29/20 16:23
[2020-01-29] MEDS ORDERED: LIDOCAINE/EPINEPHRINE 1% 20 ML VIAL ONE (17:13)
[2020-01-29] MEDS ORDERED: CITRIC ACID/SODIUM CITRATE 15 ML UDC ONE (17:29)
[2020-01-29] MEDS ORDERED: MoRPHine SULFATE PF 1 MG/ML 10 ML AMP/VIAL ONE (17:50)
[2020-01-29] MEDS ORDERED: fentaNYL citrate 100 MCG/2 ML VIAL ONE (17:50)
[2020-01-29] MEDS ORDERED: OXYTOCIN 10 UNITS/ML VIAL ONE (18:57)
[2020-01-29] MEDS ORDERED: OXYTOCIN 10 UNITS/ML VIAL IM ONE (18:57)
[2020-01-29] MEDS ORDERED: ONDANSETRON INJ 2 MG/ML 2 ML VIAL ONE (18:57)
[2020-01-29] MEDS ORDERED: LACTATED RINGER'S 500 ML IV PRN (19:03)
[2020-01-29] MEDS ORDERED: NALOXONE HCL 0.4 MG/1 ML VIAL/CARP IV PRN (19:03)
[2020-01-29] MEDS ORDERED: NALOXONE HCL 0.08 MG in SYRINGE 1.8 ML IV PRN (19:03)
[2020-01-29] MEDS ORDERED: diphenhydrAMINE 50 MG/ML VIAL IV PRN (19:03)
[2020-01-29] MEDS ORDERED: ACETAMINOPHEN 1000 MG/100 ML IV IV PRN (19:03)
[2020-01-29] MEDS ORDERED: ONDANSETRON INJ 2 MG/ML 2 ML VIAL IV PRN ×2 (19:03→19:34)
[2020-01-29] MEDS ORDERED: ePHEDrine sulfate 50 MG/ML AMP IV PRN (19:03)
[2020-01-29] MEDS ORDERED: NALOXONE HCL 1 MG in SODIUM CHLORIDE 0.9% 1000ML 1,000 ML IV PRN (19:03)
[2020-01-29] MEDS ORDERED: MoRPHine SULFATE PF 1 MG/ML 10 ML AMP/VIAL INT SPINAL ONE (19:03)
[2020-01-29] MEDS ORDERED: NO NARCOTICS OR SEDATIVES SCH (19:15)
[2020-01-29] MEDS ORDERED: SODIUM CHLORIDE 0.9% 1000ML 1,000 ML IV SCH (19:15)
[2020-01-29] MEDS ORDERED: ARISTA ABSORBABLE HEMOSTAT 3GM TOP ONE (19:17)
[2020-01-29] MEDS ORDERED: KETOROLAC 30 MG/ML VIAL ONE (19:31)
[2020-01-29] MEDS ORDERED: SENNA 8.6 MG TAB PO PRN (19:34)
[2020-01-29] MEDS ORDERED: BENZOCAINE 20% AER SPR 82.5 GM CAN EXT PRN (19:34)
[2020-01-29] MEDS ORDERED: DIPHTHERIA/TETANUS/PERTUSSIS 0.5 ML SYR/VIAL IM ONE (19:34)
[2020-01-29] MEDS ORDERED: MAGNESIUM HYDROXIDE SUSP 30 ML UDC PO PRN (19:34)
[2020-01-29] MEDS ORDERED: SUPERCREAM 0.870% 15 GM JAR EXT PRN (19:34)
[2020-01-29] MEDS ORDERED: HYDROCORTISONE ACETATE 25 MG SUPP PR PRN (19:34)
--- NOTE | 2020-01-29 19:41 | Post Operative Brief Note ---
Immediate Post Op Note v1 Date of Surgery January 29, 2020 Pre & Post Diagnosis Operation Date: 01/29/20 17:30 Pre-Op Diagnosis: Repeat section with bilateral tubal ligation Post-Op Diagnosis: Repeat section with bilateral tubal ligation I identified the patient and participated in the time-out.: Yes Procedure Operation Date: 01/29/20 17:30 Actual Procedures p Section in LD for living male child at 1831 with bilateral tubal ligation(Bilateral) - Jorge Smyth MD Surgeon Jorge Smyth MD Claims Correspondence Clerk Dr Begum Estimated Blood Loss 600 Findings Consistent with Post-Op Diagnosis pelvic adhesions thin lower uterine segment Fluids 800 ml Specimens placenta portion both fallopian tubes Drains [place] Catheter ([place] catheter placed following spinal without difficulty. Draining clear yellow urine. Urine output to be monitored by anesthesia intraoperatively) Anesthesia Type Spinal Disposition Accompanied Patient To Recovery: No Disposition: Recovery Room
--- NOTE | 2020-01-29 20:13 | Operative Report (OR) ---
DATE OF OPERATION: 01/29/2020 PROCEDURE: Repeat low segment section, bilateral partial salpingectomy. INDICATIONS FOR SURGERY: Elevated blood pressure, proteinuria, asthma. PREOPERATIVE DIAGNOSES: High blood pressure, asthma. POSTOPERATIVE DIAGNOSES: High blood pressure, asthma, delivered live infant. SURGEON: Lakesha Smyth MD. PACKAGING TECH: Chandu Medina MD. ESTIMATED BLOOD LOSS: 600 mL. ANESTHESIA: Spinal. OPERATIVE FINDINGS AND PROCEDURE: The patient was brought to the OR table, correctly identified by armband and conversation. Spinal anesthesia was administered. A Hernandez catheter was inserted aseptically in the bladder. Compression stockings were applied to the legs. The patient was positioned on the OR table. Lower abdomen was painted with an alcohol-based sterilizing solution. Once the level of the anesthesia was checked, a Pfannenstiel incision was made through a previous scar, carried down to the anterior fascia. Hemostasis was secured by electrocauterization. Fascia was incised transversely from an underlying muscle by blunt and sharp dissection. Recti muscles were in the midline exposing the peritoneum, which was carefully raised and entered. There were some adhesions of the anterior abdominal wall, which were taken down bluntly and with electrocautery. A retractor was placed into the abdomen and then a lower uterine segment was exposed. The bladder was taken down. There was a window in the lower uterine segment, was extremely thin. We went in through that window. Fluid was clear. Sql Server Consultant's hands were inserted into the uterus. With fundal pressure, the was delivered. The cord was then stripped and then clamped and cut. Infant was attended to by the probation supervisor, Dr. Vincent, who was scrubbed and present at the time of the delivery. Following this, cord blood was taken. Placenta was removed intact. It was anterior and close to the uterine incision. Several ring forceps were used to grab the edges of the defect and to help with hemostasis, a heavy chromic gut suture was used to approximate the myometrial layer. Then, a separate suture of heavy Vicryl was used to approximate the fascial layer over the first layer. Then, several [id number] sutures of Vicryl were used to help bolster this layer. Hemostasis was good. We did a tubal ligation by ligating a portion of the fallopian tube proximally and distally, then infiltrating the section between the 2 sutures with local with epinephrine, dissected the tube out between the 2 leaves of the broad ligament and then sutured the broad ligament, burying the proximal stump of the tube and exteriorizing the distal stump with interrupted sutures of plain. Following this, we washed the pelvis clean and the cul-de-sac, checked for hemostasis. Hemostasis was excellent. We then put in a fish retractor after taking down several other adhesions to the anterior abdominal wall. We then did a running chromic gut suture approximation of the peritoneum. Then interrupted [id number] sutures of the muscle to restore the muscular layer and approximate the 2 sides of the rectus muscle. Then we did a running suture of heavy Vicryl to approximate the fascial layer. Following this, we then did a deep suture of plain, freed up the skin edges and approximated the skin edges with staple clips. I attest to the content of the Intraoperative Record and any orders documented therein. Any exception s are noted below.
--- NOTE | 2020-01-29 20:17 | Anesthesiology Progress Note ---
Date of Service January 29, 2020 Anesthesia Post Procedure Vital Signs Vital Signs: Temp Pulse Pulse Resp BP BP Pulse Ox 01/29/20 20:14 85 188/98 H 01/29/20 20:12 92 H 96 01/29/20 20:09 92 H 94 01/29/20 20:07 86 92 01/29/20 20:04 83 165/79 H 94 01/29/20 20:02 85 94 01/29/20 19:59 83 94 01/29/20 19:57 89 94 01/29/20 19:54 84 172/81 H 01/29/20 19:53 89 94 01/29/20 19:52 81 95 01/29/20 19:48 86 94 01/29/20 19:47 90 96 01/29/20 19:44 36.4 C L 80 20 150/64 H 98 01/29/20 19:43 88 150/68 H 94 01/29/20 19:42 118 H 96 01/29/20 17:51 83 99 01/29/20 17:46 103 H 99 01/29/20 17:44 96 H 92 01/29/20 17:41 89 99 01/29/20 17:36 85 100 01/29/20 17:31 95 H 98 01/29/20 16:47 84 182/103 H 01/29/20 16:18 36.6 C 88 18 185/101 H 01/29/20 16:00 88 185/101 H Pain Intensity Bilateral Abdomen: Pain Intensity: 7 Transfer of Care Handoff Completed per policy Notes Mental Status: alert / awake / arousable and participated in evaluation Nausea / Vomiting: adequately controlled Pain: adequately controlled Airway Patency, RR, SpO2: stable & adequate BP & HR: stable & adequate Hydration State: stable & adequate Neuraxial Anesthesia: was administered and sensory block is resolving Anesthetic Complications: no major complications apparent and Pt Satisfied with anesthetic care
[2020-01-29] MEDS: HYDROmorphone INJ 0.5 MG/0.5 ML SYR IV PRN (20:19)
[2020-01-29] MEDS: OXYTOCIN 20 UNITS in LACTATED RINGER'S 1,000 ML IV SCH (20:55)
[2020-01-29] MEDS: SIMETHICONE 80 MG CHEW PO SCH (21:22)
[2020-01-29] MEDS: DOCUSATE SODIUM 100 MG CAP PO SCH (21:22)
[2020-01-29] MEDS ORDERED: ALBUTEROL HFA 8 GM INHALER INH PRN (22:12)
[2020-01-29] MEDS ORDERED: methylPREDNISolone 40 MG in SYRINGE 0 ML IV STA (22:20)
[2020-01-29] MEDS ORDERED: hydrALAZINE HCL 20 MG/ML VIAL IV PRN (22:21)
--- NOTE | 2020-01-30 00:46 | Consultation Report ---
DATE OF ADMISSION: 01/29/2020 CHIEF COMPLAINT: Status post , asthma. HISTORY OF PRESENT ILLNESS: This is a 34-year-old female with past medical history significant for asthma, gestational diabetes,gestation HTN, obesity, obsessive compulsive disorder, generalized anxiety disorder, history of depression, history of tobacco abuse, who seems to have quit about 3-1/2 months ago. The patient was recently transferred to [facility] on 01/16/2020 for asthma exacerbation and she was discharged on 01/19/2020. She was treated with steroids and nebs. Rhinovirus was positive, COVID was negative, and she did fine and she was discharged on inhalers and prednisone taper. She is currently on 10 mg prednisone. She had intrauterine at 37 and 3 weeks and she is status post a because of high blood pressure, proteinuria, tolerated the procedure fine and currently resting comfortably. She says she still has some cough, dry, occasionally brings whitish phlegm. She still has sore throat since 01/20/2020. Denies any fever, chills. No chest pain, no shortness of breath, no headache, no blurred visions, no earache. Appetite is okay. No dysphagia. Normal bowel and bladder movements. ALLERGIES: No known drug allergies. PAST MEDICAL HISTORY: As mentioned above. PAST SURGICAL HISTORY: , tonsillectomy, adenoidectomy, repair of nasal septum. MEDICATIONS: Currently the patient is on albuterol 2 puffs inhalation q. 6 hours p.r.n., benzonatate 200 mg p.o. b.i.d. p.r.n., Advair Diskus one inhalation b.i.d., gabapentin 300 mg p.o. t.i.d., Claritin 10 mg p.o. daily p.r.n., nifedipine 30 mg p.o. t.i.d., 1 tablet p.o. daily, prednisone 20 mg taper, Effexor 75 mg p.o. a.m. FAMILY HISTORY: Significant for mother has fibromyalgia and lupus, father has OCD. SOCIAL HISTORY: . Former smoker, quit in September 2019. Alcohol socially, wine, social drinking. No drug abuse. REVIEW OF SYSTEMS: As per HPI. Rest of the review of systems negative. PHYSICAL EXAMINATION: GENERAL: The patient is obese, not in acute distress. VITAL SIGNS: Temperature 36.7, pulse 97, respiratory rate 18, blood pressure 143/72, oxygen 95% on room air. HEENT: Extraocular muscles intact. NECK: No neck masses seen. CARDIOVASCULAR: S1, S2 heard, regular rate and rhythm, no murmur, no gallop. RESPIRATORY SYSTEM: Normal AP diameter. No accessory muscle use. Bilateral rhonchi heard. ABDOMEN: Soft, bowel sounds present. No distention. CENTRAL NERVOUS SYSTEM: Nonfocal. EXTREMITIES: No edema, no erythema. LABORATORY DATA: WBC 19.2, hemoglobin 11.6, hematocrit 33.2, platelets 247. Sodium 139, potassium 3.7, chloride 108, bicarbonate 23, BUN 13, creatinine 0.6, serum glucose 81, calcium 8.9, total bilirubin 0.3, direct bilirubin less than 0.1, AST 23, ALT 34, alkaline phosphatase 100. SARS-CoV-2 RNA negative. ASSESSMENT AND PLAN: This is a 34-year-old female, currently 2, para 2, history of asthma, status post . 1. Status post section. Further management as per [facility]. Holding breast feeding, until further evaluation by [facility]. 2. Asthma. Recently treated at [facility]. On inhalers and prednisone taper. Still has rhonchi on exam. We will continue her home inhalers. Currently the patient is on prednisone 10 mg. Because of surgery will 1 dose of steroids of IV Solu-Medrol 40 mg and continue with prednisone 20 mg daily in the a.m. and taper . nebs prn. 3. Gestational hypertension. The patient was using labetalol before, but because of asthma it was changed to nifedipine by [facility]. Currently, the patient is status post section, the baby delivered. We will monitor with IV hydralazine p.r.n. 4. Gestational diabetes. Will follow the blood sugars. 5. History of depression, obsessive compulsive disorder, on venlafaxine. We will hold the medication for now until decision made about the . 6. Deep venous thrombosis prophylaxis and disposition as per [facility]. MTDD
[2020-01-30] MEDS: KETOROLAC 30 MG/ML VIAL IV PRN ×2 (01:09→07:54)
[2020-01-30] MEDS ORDERED: ZOLPIDEM TARTRATE 5 MG TAB ONE (03:27)
[2020-01-30] MEDS: HYDROmorphone INJ 0.5 MG/0.5 ML SYR IV PRN (03:40)
[2020-01-30] MEDS: OXYTOCIN 20 UNITS in LACTATED RINGER'S 1,000 ML IV SCH (05:01)
[2020-01-30] MEDS ORDERED: CITRIC ACID/SODIUM CITRATE 15 ML UDC PO SCH (06:00)
[2020-01-30] MEDS ORDERED: cefOXitin 2,000 MG in DEXTROSE 5% 50 ML IV SCH (06:00)
[2020-01-30 07:07] LABS: Basophils # (auto) 0.01 K/uL (0-0.2); Eosinophils # (auto) 0.02 K/uL (0-0.5); Eosinophils % (auto) 0.1 %; Hematocrit (blood only) 31.3 % (37-47); Hemoglobin 10.9 g/dL (12.0-16.0); Immature Granulocytes # (auto) 0.28 K/uL (0.00-0.02); Immature Granulocytes % (auto) 1.4 %; Lymphocytes # (auto) 1.44 K/uL (1.2-3.4); Lymphocytes % (auto) 7.1 %; Mean Corpuscular Hemoglobin 33.1 pg (25-34); Mean Corpuscular Hgb Conc 34.8 g/dL (32-36); Mean Corpuscular Volume 95.1 fL (80-100); Mean Platelet Volume 9.9 fL (7.4-10.4); Monocytes % (auto) 2.5 %; Neutrophils % (auto) 88.9 %; Platelet Count 235 K/uL (130-400); RDW Coefficient of Variation 13.1 % (11.5-14.5); RDW Standard Deviation 44.8 fL (36.4-46.3); Red Blood Count 3.29 M/uL (4.2-5.4); White Blood Count 20.35 K/uL (4.8-10.8)
[2020-01-30] MEDS ORDERED: NIFEdipine 10 MG CAP PO PRN (07:18)
[2020-01-30] MEDS ORDERED: INSULIN ASPART 100 UNITS/ML 3 ML PEN SC SCH (07:30)
[2020-01-30 07:42] LABS: BUN Creatinine Ratio 23.3 (10-20); Creatinine Clr Calc Pharmacy 137.4 ml/min; Est GFR (African American) 133.6; Est GFR (Non-African American) 115.3; Magnesium 1.7 mg/dl (1.8-2.4); Potassium 4.3 mmol/L (3.5-5.1)
[2020-01-30 07:59] LABS: Estimated Average Glucose 120 mg/dl; Hemoglobin A1C 5.8 % (4.5-5.6)
[2020-01-30] MEDS ORDERED: PRENATAL VITAMIN 1 TAB PO SCH (09:00)
[2020-01-30] MEDS ORDERED: NIFEdipine EXTENDED REL 30 MG TABCR PO SCH ×2 (09:00→21:00)
[2020-01-30] MEDS ORDERED: FLUTICASONE/VILANTEROL 100/25MCG 14 PUFFS/INHALER INH SCH (09:00)
--- NOTE | 2020-01-30 09:07 | Obstetrical Progress Note ---
Date of Service January 30, 2020 Assessment & Plan Admission and Anticipated Discharge Date Admission Date: January 29, 2020 Physical Exam Physical Exam: abdomen soft and non tender incision is clean and dry no calf tenderness vaginal bleeding scant hgb 10.9 Results & Data ([facility]) Vital Signs (Past 12 Hours) Vital Signs Temp Pulse Pulse Pulse Resp BP BP 01/30/20 08:27 17 01/30/20 07:45 36.6 C 85 18 133/76 01/30/20 06:11 16 01/30/20 05:35 01/30/20 05:30 16 01/30/20 04:40 18 01/30/20 03:05 36.5 C 84 84 16 150/87 H 01/30/20 02:35 16 01/30/20 01:10 16 01/30/20 00:00 18 131/93 01/29/20 23:40 01/29/20 23:10 18 01/29/20 23:00 167/90 H 01/29/20 22:30 36.6 C 86 16 152/90 H 01/29/20 22:04 97 H 01/29/20 22:00 85 01/29/20 21:59 85 01/29/20 21:55 82 18 143/72 H 01/29/20 21:54 91 H 01/29/20 21:49 92 H 01/29/20 21:47 87 01/29/20 21:44 91 H 01/29/20 21:42 84 01/29/20 21:39 91 H 01/29/20 21:37 92 H 01/29/20 21:34 87 01/29/20 21:32 97 H 01/29/20 21:29 94 H 01/29/20 21:26 83 01/29/20 21:24 84 01/29/20 21:19 82 01/29/20 21:15 37.0 C 84 18 01/29/20 21:12 80 01/29/20 21:07 97 H BP Pulse Ox 01/30/20 08:27 93 01/30/20 07:45 90 01/30/20 06:11 93 01/30/20 05:35 98 01/30/20 05:30 96 01/30/20 04:40 97 01/30/20 03:05 98 01/30/20 02:35 98 01/30/20 01:10 98 01/30/20 00:00 99 01/29/20 23:40 169/101 H 80 L 01/29/20 23:10 95 01/29/20 23:00 01/29/20 22:30 97 01/29/20 22:04 95 01/29/20 22:00 93 01/29/20 21:59 94 01/29/20 21:55 97 01/29/20 21:54 96 01/29/20 21:49 95 01/29/20 21:47 93 01/29/20 21:44 97 01/29/20 21:42 94 01/29/20 21:39 95 01/29/20 21:37 94 01/29/20 21:34 91 01/29/20 21:32 94 01/29/20 21:29 92 01/29/20 21:26 94 01/29/20 21:24 95 01/29/20 21:19 91 01/29/20 21:15 163/83 H 96 01/29/20 21:12 90 01/29/20 21:07 86 L
[2020-01-30] MEDS: PRENATAL VITAMIN 1 TAB PO SCH (09:08)
[2020-01-30] MEDS: SIMETHICONE 80 MG CHEW PO SCH ×4 (09:08→21:21)
[2020-01-30] MEDS: predniSONE 20 MG TAB PO SCH (09:09)
[2020-01-30] MEDS: DOCUSATE SODIUM 100 MG CAP PO SCH ×2 (09:09→21:22)
[2020-01-30] MEDS: FERROUS SULFATE 325 MG TAB PO SCH (09:11)
[2020-01-30] MEDS: FLUTICASONE/VILANTEROL 200/25MCG 14 PUFFS/INHALER INH SCH (09:12)
[2020-01-30] MEDS: VENLAFAXINE HCL XR 75 MG CAPXR PO SCH (10:47)
[2020-01-30] MEDS: MAGNESIUM OXIDE 400 MG TAB PO SCH ×2 (10:48→21:25)
[2020-01-30] MEDS: IBUPROFEN 600 MG TAB PO PRN ×2 (11:31→18:27)
[2020-01-30] MEDS ORDERED: KETOROLAC 30 MG/ML VIAL IV PRN (13:03)
[2020-01-30] MEDS ORDERED: MEPERIDINE HCL 50 MG/ML CARP IV PRN (13:03)
[2020-01-30] MEDS ORDERED: ZOLPIDEM TARTRATE 5 MG TAB PO PRN (13:03)
[2020-01-30] MEDS ORDERED: diphenhydrAMINE 50 MG/ML VIAL IV PRN (13:03)
[2020-01-30] MEDS ORDERED: PROMETHAZINE HCL 25 MG in SODIUM CHLORIDE 0.9% 50 ML IV PRN (13:03)
[2020-01-30] MEDS ORDERED: diphenhydrAMINE Capsule 25 MG CAP PO PRN (13:03)
[2020-01-30] MEDS ORDERED: DC INTRASPINAL MORPHINE ONE (13:03)
[2020-01-30] MEDS: oxyCODONE/ACETAMINOPHEN 5mg/325mg TAB PO PRN ×2 (13:48→18:27)
--- NOTE | 2020-01-30 15:34 | Hospitalist Progress Note ---
Date of Service January 30, 2020 Assessment & Plan (1) Hypertensive urgency: Gestational HTN : pt started on Schedule dose of Nifedipine XR BP improved ECHO shows : no evidence of hypertensive cardiomyopathy Beta toro/Labetalol avoided for severe asthma /bronchospasm will be discharged home with PO Nifedipine will need follow up with family physician for BP monitoring and adjustment of meds if needed (2) Status post section routine follow-up: management as per Ob-THERMAL TECHNICIAN Asthma exacerbation : cont Neb tx /PO prednisone , can be discharged home with home inhalers and prescription for steroid taper Leukocytosis : possible steroid induced - monitor (3) Anxiety: cont home meds DISPOSITION : possible discharge home tomorrow Admission and Anticipated Discharge Date Admission Date: January 29, 2020 Subjective has minimum no productive cough no audible wheeze no fever or chills denies of any headache , no chest pain or SOB Review of Systems Review of Systems: All systems reviewed & are unremarkable except as noted in Subjective Cardiovascular: no chest pain, no dyspnea and no orthopnea Physical Exam Constitutional: WD/WN, vitals as above Eyes: PERRL, conjunctivae normal, anicteric sclerae ENMT: external ear and nose normal, oropharynx normal Neck: trachea midline, no thyromegaly Respiratory: normal respiratory effort, lungs clear to auscultation Cardiovascular: RRR, no murmur, no edema Gastrointestinal (Abdomen): normal bowel sounds, soft, nontender, no hepatosplenomegaly Musculoskeletal: no cyanosis or clubbing, extremities motor strength 5/5 Skin: no rashes, warm and dry Neurologic: PERRL, EOMI, accommodation nl, no face palsy, no dysarthria Psychiatric: A+Ox3, euthymic affect Results & Data Results & Data ([facility]) Vital Signs (Past 12 Hours) Vital Signs Temp Pulse Resp BP Pulse Ox 01/30/20 13:00 18 98 01/30/20 12:00 36.9 C 96 H 17 134/78 98 01/30/20 11:00 16 96 01/30/20 10:09 17 90 01/30/20 09:11 129/77 01/30/20 09:00 17 94 01/30/20 08:27 17 97 01/30/20 07:45 36.6 C 85 18 133/76 99 01/30/20 06:11 16 93 01/30/20 05:35 98 01/30/20 05:30 16 96 01/30/20 04:40 18 97
[2020-01-30] MEDS: GABAPENTIN 300 MG CAP PO SCH ×2 (16:23→21:26)
[2020-01-30] MEDS ORDERED: bisacodyL 5 MG TABEC PO SCH (20:00)
[2020-01-30] MEDS: ALBUTEROL 0.083% NEBU SOLN 3 ML VIAL NEB PRN (20:34)
[2020-01-31] MEDS: oxyCODONE/ACETAMINOPHEN 5mg/325mg TAB PO PRN ×4 (00:13→13:53)
[2020-01-31] MEDS: IBUPROFEN 600 MG TAB PO PRN ×4 (00:16→13:52)
[2020-01-31] MEDS: ALBUTEROL 0.083% NEBU SOLN 3 ML VIAL NEB PRN (05:07)
[2020-01-31 06:31] LABS: Basophils # (auto) 0.03 K/uL (0-0.2); Basophils % (auto) 0.2 %; Eosinophils # (auto) 0.13 K/uL (0-0.5); Eosinophils % (auto) 0.7 %; Hematocrit (blood only) 31.4 % (37-47); Hemoglobin 10.6 g/dL (12.0-16.0); Immature Granulocytes # (auto) 0.19 K/uL (0.00-0.02); Lymphocytes # (auto) 4.05 K/uL (1.2-3.4); Lymphocytes % (auto) 21.7 %; Mean Corpuscular Hemoglobin 32.9 pg (25-34); Mean Corpuscular Hgb Conc 33.8 g/dL (32-36); Mean Corpuscular Volume 97.5 fL (80-100); Mean Platelet Volume 9.3 fL (7.4-10.4); Monocytes # (auto) 1.33 K/uL (0.11-0.59); Monocytes % (auto) 7.1 %; Neutrophils # (auto) 12.94 K/uL (1.4-6.5); Neutrophils % (auto) 69.3 %; Platelet Count 284 K/uL (130-400); RDW Coefficient of Variation 13.4 % (11.5-14.5); RDW Standard Deviation 46.3 fL (36.4-46.3); Red Blood Count 3.22 M/uL (4.2-5.4); White Blood Count 18.67 K/uL (4.8-10.8)
[2020-01-31 06:32] LABS: Hematocrit (blood only) 31.7 % (37-47); Hemoglobin 10.8 g/dL (12.0-16.0)
[2020-01-31 06:57] LABS: Albumin Level 2.5 gm/dl (3.4-5.0); BUN Creatinine Ratio 21.9 (10-20); Calcium 8.4 mg/dl (8.5-10.1); Creatinine Clr Calc Pharmacy 137.4 ml/min; Est GFR (African American) 133.6; Est GFR (Non-African American) 115.3; Magnesium 1.7 mg/dl (1.8-2.4)
[2020-01-31 07:00] LABS: Albumin Globulin Ratio 0.7 (0.9-2); Bilirubin,Total 0.3 mg/dl (0.2-1); Globulin 3.5 gm/dl (2.5-4.0)
[2020-01-31] MEDS: SIMETHICONE 80 MG CHEW PO SCH ×2 (08:46→12:46)
[2020-01-31] MEDS: DOCUSATE SODIUM 100 MG CAP PO SCH (08:47)
[2020-01-31] MEDS: VENLAFAXINE HCL XR 75 MG CAPXR PO SCH (08:47)
[2020-01-31] MEDS: FLUTICASONE/VILANTEROL 200/25MCG 14 PUFFS/INHALER INH SCH (08:47)
[2020-01-31] MEDS: MAGNESIUM OXIDE 400 MG TAB PO SCH (08:48)
[2020-01-31] MEDS: GABAPENTIN 300 MG CAP PO SCH ×2 (08:48→14:07)
[2020-01-31] MEDS: PRENATAL VITAMIN 1 TAB PO SCH (08:48)
[2020-01-31] MEDS: predniSONE 20 MG TAB PO SCH (08:48)
[2020-01-31] MEDS: FERROUS SULFATE 325 MG TAB PO SCH (08:48)
--- NOTE | 2020-01-31 08:53 | Communication Note ---
Date of Service: January 31, 2020 Medicine consult/attending note thomas/christina chart reviewed: Patient was discharged from [facility] on 01/19/2020: Per discharge summary, patient was discharged on nifedipine ER 30 mg daily, labetalol was discontinued for asthma exacerbation. During this admission , patient's blood pressure remains persistently elevated, minimum response with nifedipine 30 mg , will increase dose to Procardia XL/nifedipine to 60 mg daily, Can be discharged home with above drug regimen Will need close follow-up with family physician for further blood pressure monitoring and adjustment of medications if indicated. Heydi Cottrell MD
[2020-01-31] MEDS ORDERED: NIFEdipine EXTENDED REL 30 MG TABCR PO SCH (09:00)
--- NOTE | 2020-01-31 11:07 | Obstetrical Progress Note ---
Date of Service January 31, 2020 Assessment & Plan Admission and Anticipated Discharge Date Admission Date: January 29, 2020 Physical Exam Physical Exam: abdomen soft and non tender incision is clean and dry bowel sounds normal passing flatus no calf tenderness ambulating well vaginal bleeding scant hgb 10.8 Results & Data ([facility]) Vital Signs (Past 12 Hours) Vital Signs Temp Pulse Resp BP BP Pulse Ox 01/31/20 10:00 160/96 H 173/100 H 01/31/20 08:40 36.4 C L 108 H 20 169/97 H 96 01/31/20 05:07 107 H 18 97 01/31/20 04:20 36.5 C 102 H 18 159/99 H 97 01/31/20 00:00 36.6 C 98 H 18 169/100 H 96
--- NOTE | 2020-01-31 11:59 | Discharge Summary (DS) ---
2, para 2, blood type is A negative, group B strep negative. She was brought in for repeat at 37 weeks and 3 days, was followed in our office for care and delivery. She has a lifelong history of asthma and was doing fairly well up until about a month prior to admission, her pressures had been relatively high, but stable. They started to climb. She was started on labetalol. She also had an exacerbation of her asthma. About 2-3 weeks prior to admission, she was seen in the ER with shortness of breath. She had oxygen sats of under 88. She was transferred to [place]. She was tested for COVID, found to be negative. Found to have a viral upper respiratory infection. Her blood pressure medicines were switched from labetalol to nifedipine. She was also given Advair, which she has taken twice a day and she was stabilized at [facility] on the nifedipine and prednisone and Advair. Came back to the office, I followed her twice a week in the office. Her conditions began to worsen and we eventually admitted her with hypertension, worsening asthma and +2 proteinuria. At this time, she was 37 weeks and 3 days and we came to the conclusion that delivery was necessary. On the day of admission, she went back to the OR where she underwent a repeat low segment section. Her estimated blood loss was 600 mL. She was given prophylactic antibiotics. Postoperatively, she was managed by myself and the [facility] hospitalist. She did well, she remained afebrile. Her bowel sounds returned within 24 hours. Her discharge hemoglobin was 10.8. Her asthma was managed with Solu-Medrol dose of steroids at the time of the surgery, also the Advair and p.o. prednisone. Her nifedipine had to be increased to about 60 b.i.d. to control her blood pressure. At the time of discharge, she was ambulating well, eating well, pressures were well controlled, asthma condition was returned to her baseline and she was told to call the office if she had any temperature, shortness of breath or any other difficulties. She also had prescriptions for Percocet and Motrin for pain control.
--- NOTE | 2020-01-31 13:23 | Hospitalist Progress Note ---
Date of Service January 31, 2020 Assessment & Plan (1) Hypertensive urgency: Gestational HTN : Patient was discharged from [facility] on 01/19/2020: Per discharge summary, patient was discharged on nifedipine ER 30 mg daily, labetalol was discontinued for asthma exacerbation. During this admission , patient's blood pressure remains persistently elevated, minimum response with nifedipine 30 mg increased dose Procardia XL/nifedipine to 60 mg BID D/w Ip Attorney Echo: Normal study, no evidence of hypertensive cardiomyopathy Patient will be discharged home with of nifedipine regimen , Instructed for home blood pressure monitoring at least twice a week keep log and follow-up with family physician Will need close follow-up with family physician for further blood pressure monitoring and adjustment of medications if indicated. (2) Status post section routine follow-up: management as per [employer] Asthma exacerbation : cont Neb tx /PO prednisone , Symptom improved, patient is discharged home today with home inhalers, and prednisone taper Leukocytosis : possible steroid induced - Improved, no fever or chills no sign of infection (3) Anxiety: History of anxiety/depression: Patient is on Effexor which can contribute to high blood pressure, Counseling provided for family physician follow-up and consideration for weaning of Effexor and started with alternate SSRI: Escitalopram or Zoloft Patient was on Prozac for a long time which did not help her symptoms DISPOSITION : Stable to be discharged home today Plan of care discussed in detail with patient and her all questions answered Admission and Anticipated Discharge Date Admission Date: January 29, 2020 Subjective Patient reports of feeling fine, no headache no shortness of breath no dyspnea on exertion Nonproductive cough, no hypoxia ready to be discharged home today Review of Systems Review of Systems: All systems reviewed & are unremarkable except as noted in HPI & below Physical Exam Constitutional: WD/WN, vitals as above Eyes: PERRL, conjunctivae normal, anicteric sclerae ENMT: external ear and nose normal, oropharynx normal Neck: trachea midline, no thyromegaly Respiratory: normal respiratory effort, lungs clear to auscultation Cardiovascular: RRR, no murmur, no edema Gastrointestinal (Abdomen): normal bowel sounds, soft, nontender, no hepatosplenomegaly Musculoskeletal: no cyanosis or clubbing, extremities motor strength 5/5 Skin: no rashes, warm and dry Neurologic: PERRL, EOMI, accommodation nl, no face palsy, no dysarthria Psychiatric: A+Ox3, euthymic affect Results & Data Results & Data ([facility]) Vital Signs (Past 12 Hours) Vital Signs Temp Pulse Pulse Resp BP BP Pulse Ox 01/31/20 13:12 36.4 C L 100 H 108 H 20 167/99 H 160/90 H 96 01/31/20 12:45 167/99 H 160/90 H 01/31/20 10:00 160/96 H 173/100 H 01/31/20 08:40 36.4 C L 108 H 20 169/97 H 96 01/31/20 05:07 107 H 18 97 01/31/20 04:20 36.5 C 102 H 18 159/99 H 97
[2020-01-31] MEDS ORDERED: bisacodyL 10 MG SUPP PR PRN (19:34)
== END 2020-01-31 14:20 | disposition home or self-care (01) | DRG 784 ==
LOC: 4S1 15:51 → OPB 15:51 → 4S1 18:40 → 4S2 22:20